=== PATIENT | female | born 1975 | race Caucasian/White ===

== ENCOUNTER 2017-05-25 17:49 | Emergency (ER) | payer OTHER ==
[2017-05-25 18:26] LABS: ABSOLUTE BASOPHILS # (AUTO) 0.1 10^3/uL (0.0-0.2); ABSOLUTE EOSINOPHILS # (AUTO) 0.2 10^3/uL (0.0-0.6); ABSOLUTE LYMPHOCYTES (AUTO) 2.5 10^3/uL (0.5-4.7); ABSOLUTE MONOCYTES (AUTO) 0.5 10^3/uL (0.1-1.4); ABSOLUTE NEUT (AUTO) 4.7 10^3/uL (1.7-8.2); BASOPHILS % (AUTO) 0.8 % (0-2); EOSINOPHILS % (AUTO) 1.9 % (0-6); HEMATOCRIT 36.9 % (36.0-47.0); HEMOGLOBIN 12.8 g/dL (12.0-15.5); HGB HCT DIFFERENCE 1.5; LYMPHOCYTES % (AUTO) 31.7 % (13-45); MEAN CORPUSCULAR HEMOGLOBIN 35.8 pg (27.0-33.4); MEAN CORPUSCULAR HGB CONC 34.8 g/dL (32.0-36.0); MEAN CORPUSCULAR VOLUME 103 fl (80-97); MONOCYTES % (AUTO) 6.3 % (3-13); RED BLOOD COUNT 3.58 10^6/uL (3.72-5.28); RED CELL DISTRIBUTION WIDTH 13.4 % (11.5-14.0); SEGMENTED NEUTROPHILS % (AUTO) 59.3 % (42-78)
[2017-05-25 18:50] LABS: ALANINE AMINOTRANSFERASE 47 U/L (9-52); ALBUMIN 4.7 g/dL (3.5-5.0); ALKALINE PHOSPHATASE 65 U/L (38-126); ANION GAP 13 (5-19); ASPARTATE AMINO TRANSFERASE 45 U/L (14-36); BILIRUBIN,DIRECT 0.3 mg/dL (0.0-0.4); BILIRUBIN,TOTAL 0.6 mg/dL (0.2-1.3); BLOOD UREA NITROGEN 6 mg/dL (7-20); CALCIUM 9.4 mg/dL (8.4-10.2); CARBON DIOXIDE 25 mmol/L (22-30); CHLORIDE 102 mmol/L (98-107); CREATININE RESULT 0.72 mg/dL (0.52-1.25); GLUCOSE 94 mg/dL (75-110); POTASSIUM 3.7 mmol/L (3.6-5.0); SODIUM 140.2 mmol/L (137-145); TOTAL PROTEIN 7.9 g/dL (6.3-8.2)
[2017-05-25 19:03] LABS: APPEARANCE,URINE CLEAR; BILIRUBIN,URINE NEGATIVE (NEGATIVE); GLUCOSE, URINE NEGATIVE (NEGATIVE); KETONES,URINE NEGATIVE (NEGATIVE); LEUKOCYTE ESTERASE,URINE NEGATIVE (NEGATIVE); NITRITE,URINE NEGATIVE (NEGATIVE); PROTEIN,URINE NEGATIVE (NEGATIVE); URINE SPECIFIC GRAVITY 1.001; UROBILINOGEN,URINE NEGATIVE mg/dL (<2.0)
--- NOTE | 2017-05-25 19:07 | ER Document Report ---
ED General - General Chief Complaint: Abdominal Pain Stated Complaint: ABDOMINAL PAIN Time Seen by Provider: 05/25/17 18:08 Notes: Patient states she was recently diagnosed with a urinary tract infection. She was started on Keflex. She states she does drink 6-12 beers per day and is concerned that the Keflex may augment the liver damage the alcohol is doing. She states her abdomen is felt bloated and she continues to have right low back pain so she is concerned. She states the right low back pain is severe and constant. It is been present for approximately 1 week. It is no better despite 3 days of Keflex. Patient has had some nausea but no vomiting or diarrhea. Pain is slightly worse with movement better with rest. It does not radiate. TRAVEL OUTSIDE OF THE [place] IN LAST 30 DAYS: No - Related Data Allergies/Adverse Reactions: acetaminophen [From Fioricet] Allergy (Verified 05/25/17 17:54) butalbital [From Fioricet] Allergy (Verified 05/25/17 17:54) caffeine [From Fioricet] Allergy (Verified 05/25/17 17:54) hydrocodone bitartrate [From Vicodin] Allergy (Verified 05/25/17 17:54) Penicillins Allergy (Verified 05/25/17 17:54) Past Medical History - Social History Smoking Status: Never Smoker Chew tobacco use (# tins/day): No Frequency of alcohol use: Heavy Drug Abuse: None Family History: Reviewed & Not Pertinent, Other - Father had renal carcinoma, mom has history of CHF, no one with premature coronary artery disease - Past Medical History Cardiac Medical History: Reports: Hx Hypertension Renal/ Medical History: Denies: Hx Peritoneal Dialysis GI Medical History: Reports: Hx Gastroesophageal Reflux Disease Psychiatric Medical History: Reports: Hx Anxiety - Sees Dr. Ascencio and takes Lamictal, Xanax, Seroquel, and Vistaril, Hx Depression Past Surgical History: Reports: Hx Abdominal Surgery - Tummy Tuck, Hx Appendectomy, Hx Breast Surgery - Augmentation, Hx Section - x1, tubal , Hx Orthopedic Surgery - Left arm fx, Hx Tubal Ligation - Immunizations Hx Diphtheria, Pertussis, Tetanus Vaccination: Yes Review of Systems - Review of Systems Constitutional: Malaise, Weakness. denies: Fever Gastrointestinal: Abdominal pain, Nausea Genitourinary: denies: Dysuria, Discharge Musculoskeletal: Back pain -: Yes All other systems reviewed and negative Physical Exam - Vital signs Vitals: Temp Pulse Resp BP Pulse Ox 98.5 F 71 14 149/106 H 100 05/25/17 17:52 05/25/17 17:52 05/25/17 17:52 05/25/17 17:52 05/25/17 17:52 Interpretation: Hypertensive - General General appearance: Appears well, Alert - HEENT Head: Normocephalic, Atraumatic Eyes: Normal Pupils: PERRL - Respiratory Respiratory status: No respiratory distress Chest status: Nontender Breath sounds: Normal Chest palpation: Normal - Cardiovascular Rhythm: Regular Heart sounds: Normal auscultation Murmur: No - Abdominal Inspection: Normal Distension: No distension Bowel sounds: Normal Tenderness: Tender - Mild tenderness in the right upper quadrant. No rebound no guarding. Organomegaly: No organomegaly - Back Back: Normal, Nontender - Extremities General upper extremity: Normal inspection, Nontender, Normal color, Normal ROM , Normal temperature General lower extremity: Normal inspection, Nontender, Normal color, Normal ROM , Normal temperature, Normal weight bearing. No: Kathleen's sign - Neurological Neuro grossly intact: Yes Cognition: Normal Orientation: AAOx4 Luke Coma Scale Eye Opening: Spontaneous [place] Coma Scale Verbal: Oriented [place] Coma Scale Motor: Obeys Commands Luke Coma Scale Total: 15 Speech: Normal Motor strength normal: LUE, RUE, LLE, RLE Sensory: Normal - Psychological Associated symptoms: Normal affect, Normal mood - Skin Skin Temperature: Warm Skin Moisture: Dry Skin Color: Normal Course - Vital Signs Vital signs: Temp Pulse Resp BP Pulse Ox 98.5 F 71 14 149/106 H 100 05/25/17 17:52 05/25/17 17:52 05/25/17 17:52 05/25/17 17:52 05/25/17 17:52 - Laboratory Result Diagrams: 05/25/17 18:15 05/25/17 18:15 Laboratory results interpreted by me: 05/25/17 05/25/17 18:15 18:15 RBC 3.58 L MCV 103 H MCH 35.8 H BUN 6 L AST 45 H Discharge - Discharge Clinical Impression: Abdominal pain, Alcohol abuse Condition: Fair Disposition: HOME, SELF-CARE Instructions: Abdominal Pain ([facility]) Additional Instructions: Please call your doctor as soon as possible arrange for reevaluation. Forms: Elevated Blood Pressure
[2017-05-25 19:16] VITALS: BP 134/89
== END 2017-05-25 19:15 | disposition home or self-care (01) ==
LOC: ER 17:49
DX: R10.9 Unspecified abdominal pain (principal); F10.10 Alcohol abuse, uncomplicated; R11.0 Nausea; M54.5 Low back pain; Z79.899 Other long term (current) drug therapy
CPT/HCPCS: 36415; 80053; 81001; 81025; 85025; 99284

== ENCOUNTER 2017-07-17 18:37 | Inpatient (IN) | payer OTHER ==
[2017-07-17] MEDS ORDERED: ONDANSETRON 4 MG TAB.RAPDIS PO ONE (19:33)
[2017-07-17] MEDS ORDERED: NORMAL SALINE 1000 ML 1,000 ML IV ONE (19:33)
--- NOTE | 2017-07-17 19:42 | ER Document Report ---
ED Medical Screen (RME) - General Chief Complaint: ETOH Abuse Stated Complaint: ABDOMINAL PAIN Time Seen by Provider: 07/17/17 19:33 Notes: This 42-year-old alcoholic comes emergency room reporting that she began drinking heavily on Thursday. She has had abdominal pain and vomiting since Thursday which is lasted all week but got worse today. She reports she has not been eating for the past week. She has also had some diarrhea. She takes Lamictal, Seroquel, Vistaril, Prilosec and carries a diagnosis of bipolar disorder. I have greeted and performed a rapid initial assessment of this patient. A comprehensive ED assessment and evaluation of the patient, analysis of test results and completion of the medical decision making process will be conducted by additional ED providers. TRAVEL OUTSIDE OF THE [place] IN LAST 30 DAYS: No - Related Data Allergies/Adverse Reactions: acetaminophen [From Fioricet] Allergy (Verified 07/17/17 18:43) butalbital [From Fioricet] Allergy (Verified 07/17/17 18:43) caffeine [From Fioricet] Allergy (Verified 07/17/17 18:43) hydrocodone bitartrate [From Vicodin] Allergy (Verified 07/17/17 18:43) Penicillins Allergy (Verified 07/17/17 18:43) Past Medical History - Social History Chew tobacco use (# tins/day): No Frequency of alcohol use: Heavy Drug Abuse: None Family history: CAD - Past Medical History Cardiac Medical History: Reports: Hx Hypertension Renal/ Medical History: Denies: Hx Peritoneal Dialysis GI Medical History: Reports: Hx Gastroesophageal Reflux Disease Psychiatric Medical History: Reports: Hx Anxiety - Sees Dr. Ascencio and takes Lamictal, Xanax, Seroquel, and Vistaril, Hx Depression Past Surgical History: Reports: Hx Abdominal Surgery - Tummy Tuck, Hx Appendectomy, Hx Breast Surgery - Augmentation, Hx Section - x1, tubal , Hx Orthopedic Surgery - Left arm fx, Hx Tubal Ligation - Immunizations Hx Diphtheria, Pertussis, Tetanus Vaccination: Yes Physical Exam - Vital signs Vitals: Temp Pulse Resp BP Pulse Ox 98.4 F 103 H 18 116/70 95 07/17/17 18:42 07/17/17 18:42 07/17/17 18:42 07/17/17 18:42 07/17/17 18:42 Course - Vital Signs Vital signs: Temp Pulse Resp BP Pulse Ox 98.4 F 103 H 18 116/70 95 07/17/17 18:42 07/17/17 18:42 07/17/17 18:42 07/17/17 18:42 07/17/17 18:42
[2017-07-17 22:06] LABS: ABSOLUTE MONOCYTES (AUTO) 0.6 10^3/uL (0.1-1.4); ABSOLUTE NEUT (AUTO) 2.5 10^3/uL (1.7-8.2); BASOPHILS % (AUTO) 0.5 % (0-2); EOSINOPHILS % (AUTO) 0.4 % (0-6); HEMOGLOBIN 13.2 g/dL (12.0-15.5); HGB HCT DIFFERENCE 3.6; LYMPHOCYTES % (AUTO) 39.2 % (13-45); MEAN CORPUSCULAR HEMOGLOBIN 36.1 pg (27.0-33.4); MEAN CORPUSCULAR HGB CONC 36.7 g/dL (32.0-36.0); MEAN CORPUSCULAR VOLUME 98 fl (80-97); MONOCYTES % (AUTO) 10.7 % (3-13); RED BLOOD COUNT 3.66 10^6/uL (3.72-5.28); RED CELL DISTRIBUTION WIDTH 12.8 % (11.5-14.0); SEGMENTED NEUTROPHILS % (AUTO) 49.2 % (42-78); WHITE BLOOD COUNT 5.2 10^3/uL (4.0-10.5)
[2017-07-17 22:20] LABS: ALANINE AMINOTRANSFERASE 49 U/L (9-52); ALBUMIN 4.5 g/dL (3.5-5.0); ALKALINE PHOSPHATASE 56 U/L (38-126); ASPARTATE AMINO TRANSFERASE 90 U/L (14-36); BILIRUBIN,DIRECT 0.4 mg/dL (0.0-0.4); BILIRUBIN,TOTAL 0.8 mg/dL (0.2-1.3); BLOOD UREA NITROGEN 5 mg/dL (7-20); CARBON DIOXIDE 15 mmol/L (22-30); CHLORIDE 81 mmol/L (98-107); CREATININE RESULT 0.61 mg/dL (0.52-1.25); GLUCOSE 137 mg/dL (75-110); MAGNESIUM 1.4 mg/dL (1.6-2.3); TOTAL PROTEIN 7.4 g/dL (6.3-8.2)
[2017-07-17 22:24] LABS: AMORPHOUS SEDIMENT,URINE 1+ /HPF; APPEARANCE,URINE TURBID; BILIRUBIN,URINE NEGATIVE (NEGATIVE); GLUCOSE, URINE 50 mg/dL (NEGATIVE); KETONES,URINE NEGATIVE (NEGATIVE); LEUKOCYTE ESTERASE,URINE NEGATIVE (NEGATIVE); NITRITE,URINE NEGATIVE (NEGATIVE); PROTEIN,URINE 30 mg/dL (NEGATIVE); URINE SPECIFIC GRAVITY 1.026; UROBILINOGEN,URINE NEGATIVE mg/dL (<2.0)
[2017-07-17 22:35] LABS: POTASSIUM 2.7 mmol/L (3.6-5.0); SODIUM 120.1 mmol/L (137-145)
[2017-07-17] MEDS ORDERED: METOCLOPRAMIDE HCL ORAL SOLN 10 MG/10 ML UDCUP PO ONE (22:40)
[2017-07-17] MEDS ORDERED: LIDOCAINE 2% VISCOUS SOLN 20 ML UDCUP PO ONE (22:40)
[2017-07-17] MEDS ORDERED: MAG HYDROX/AL HYDROX/SIMETH SUSP 30 ML UDCUP PO ONE (22:40)
[2017-07-17] MEDS ORDERED: ONDANSETRON HCL INJ/PF 4 MG/2 ML SDV IV ONE (22:40)
[2017-07-17 22:53] LABS: ANION GAP 24 (5-19)
[2017-07-17] MEDS: MORPHINE SULFATE 10 MG/ML INJ IV PRN (22:58)
[2017-07-17] MEDS ORDERED: DIAZEPAM 5 MG TABLET PO ONE (23:00)
--- NOTE | 2017-07-17 23:08 | ER Document Report ---
ED General - General Chief Complaint: ETOH Abuse Stated Complaint: ABDOMINAL PAIN Time Seen by Provider: 07/17/17 19:33 Notes: Patient is a 42-year-old female with a past medical history of chronic alcoholism that has been in relapse for the past 8 months who presents with 1 week of a severe binge on alcohol with associated nausea, vomiting and lack of food intake. Patient states that today she began to develop a progressively worsening pain in her epigastrium that was worsened by vomiting and alcohol intake. Describes as a dull, constant, aching pain. Nothing improves the pain. States she has had similar symptoms in the past due to excessive alcohol intake. She has had associated nonbilious vomiting but has had flecks of blood contained in the vomitus. Denies any melena, hematochezia or karla hematemesis. She has not seen her primary doctor regarding today's concerns. Denies any seizures. No history of completed alcohol withdrawal. TRAVEL OUTSIDE OF THE [place] IN LAST 30 DAYS: No - Related Data Allergies/Adverse Reactions: butalbital [From Fioricet] Allergy (Verified 07/17/17 18:43) caffeine [From Fioricet] Allergy (Verified 07/17/17 18:43) hydrocodone bitartrate [From Vicodin] Allergy (Verified 07/17/17 18:43) Penicillins Allergy (Verified 07/17/17 18:43) Past Medical History - General Information source: Patient - Social History Smoking Status: Former Smoker Chew tobacco use (# tins/day): No Frequency of alcohol use: Heavy Drug Abuse: None Lives with: Alone Family History: Reviewed & Not Pertinent, Other - Father had renal carcinoma, mom has history of CHF, no one with premature coronary artery disease - Past Medical History Cardiac Medical History: Reports: Hx Hypertension Renal/ Medical History: Denies: Hx Peritoneal Dialysis GI Medical History: Reports: Hx Gastroesophageal Reflux Disease Psychiatric Medical History: Reports: Hx Anxiety - Sees Dr. Ascencio and takes Lamictal, Xanax, Seroquel, and Vistaril, Hx Depression Past Surgical History: Reports: Hx Abdominal Surgery - Tummy Tuck, Hx Appendectomy, Hx Breast Surgery - Augmentation, Hx Section - x1, tubal , Hx Orthopedic Surgery - Left arm fx, Hx Tubal Ligation - Immunizations Hx Diphtheria, Pertussis, Tetanus Vaccination: Yes Review of Systems - Review of Systems Notes: Constitutional: Negative for fever. HENT: Negative for sore throat. Eyes: Negative for visual changes. Cardiovascular: Negative for chest pain. Respiratory: Negative for shortness of breath. Gastrointestinal: Positive for abdominal pain and vomiting Genitourinary: Negative for dysuria. Musculoskeletal: Negative for back pain. Skin: Negative for rash. Neurological: Negative for headaches, weakness or numbness. 10 point ROS negative except as marked above and in HPI. Physical Exam - Vital signs Vitals: Temp Pulse Resp BP Pulse Ox 98.4 F 103 H 18 116/70 95 07/17/17 18:42 07/17/17 18:42 07/17/17 18:42 07/17/17 18:42 07/17/17 18:42 Interpretation: Tachycardic Notes: PHYSICAL EXAMINATION: GENERAL: Appears uncomfortable but no acute distress HEAD: Atraumatic, normocephalic. EYES: Pupils equal round and reactive to light, extraocular movements intact, sclera anicteric, conjunctiva are normal. ENT: nares patent, oropharynx clear without exudates. Moderately dry mucous membranes. NECK: Normal range of motion, supple without lymphadenopathy LUNGS: Breath sounds clear to auscultation bilaterally and equal. No wheezes rales or rhonchi. HEART: Regular tachycardia without murmurs ABDOMEN: Soft, focal tenderness on palpation to the epigastrium otherwise no localized tenderness. No rebound or guarding. EXTREMITIES: Normal range of motion, no pitting or edema. No cyanosis. NEUROLOGICAL: No focal neurological deficits. Moves all extremities spontaneously and on command. PSYCH: Mildly anxious somewhat tearful SKIN: Warm, Dry, normal turgor, no rashes or lesions noted. Course - Re-evaluation Re-evalutation: 07/17/17 23:06 Patient presents with persistent nausea, vomiting and epigastric abdominal pain in the setting of heavy alcohol abuse for the past 1 week. Patient has had difficulty tolerating any food intake but admits to ongoing heavy beer intake. On examination she appears somewhat dehydrated, mildly disheveled but in no acute distress. She does have mild epigastric abdominal tenderness but exam is otherwise unremarkable. Laboratories unfortunately do show significant electrolyte derangements including hyponatremia with a level of 120 as well as hypokalemia with a level of 2.7. Her urine specific gravity is not significantly diluted at 1.024 suggesting that there may also be a component of malnourishment as well as diaphoresis and vomiting contributing to her hyponatremia. She has no prior history of complicated withdrawals and does not appear to be having any symptoms of active alcohol withdrawal at this time. I have begun potassium and magnesium repletion. Very gradual sodium repletion with normal saline at 125 cc/h. She has received a small amount of morphine for pain control. I have given a low dose of oral Valium at 10 mg to prevent any significant withdrawal symptoms. I have also begun repletion of thiamine and folate. I have discussed this case with Dr. Hand hospitalist artist color separation who is agreeable to admission. Patient has been placed on a monitoring tech and on seizure precautions given the degree of her hyponatremia. - Vital Signs Vital signs: Temp Pulse Resp BP Pulse Ox 98.4 F 93 18 133/79 H 96 07/17/17 18:42 07/17/17 23:17 07/17/17 23:17 07/17/17 23:17 07/17/17 23:17 - Laboratory Result Diagrams: 07/17/17 20:50 07/17/17 20:50 Laboratory results interpreted by me: 07/17/17 07/17/17 07/17/17 20:50 20:50 20:50 RBC 3.66 L MCV 98 H MCH 36.1 H MCHC 36.7 H Sodium 120.1 L* Potassium 2.7 L* Chloride 81 L Carbon Dioxide 15 L Anion Gap 24 H BUN 5 L Glucose 137 H Magnesium 1.4 L AST 90 H Lipase 445.0 H Urine Protein 30 H Urine Glucose (UA) 50 H Urine Blood MODERATE H Discharge - Discharge Clinical Impression: Hyponatremia, Hypokalemia, Alcohol abuse Nausea and vomiting Qualifiers: Vomiting type: unspecified Vomiting Intractability: non-intractable Qualified Code(s): R11.2 - Nausea with vomiting, unspecified Condition: Fair Disposition: ADMITTED INPATIENT Admitting Provider: Joao Hand Unit Admitted: [facility]
[2017-07-17] MEDS ORDERED: THIAMINE HCL 100 MG, FOLIC ACID 1 MG in NORMAL SALINE 250 ML IV SCH (23:15)
[2017-07-17 23:22] LABS: ADD ON TESTING BLD IN LAB ACKNOWLEDGE
[2017-07-17] MEDS: NORMAL SALINE 1000 ML 1,000 ML IV PRN (23:35)
[2017-07-17] MEDS ORDERED: THIAMINE HCL INJ 200 MG/2 ML VIAL IV PRN (23:35)
[2017-07-17] MEDS ORDERED: FOLIC ACID INJ 5 MG/1 ML 10 ML VIAL IV PRN (23:35)
[2017-07-17] MEDS: POTASSI CL 20 MEQ/50 ML RIDER 20 MEQ/50 ML RTUPB IV SCH (23:36)
[2017-07-17] MEDS: MAGNESIUM SULFATE/D5W 1 GM/100 ML RTUPB IV SCH (23:37)
[2017-07-17 23:41] LABS: ALCOHOL 181 mg/dL (NONE DETECTED)
[2017-07-17 23:42] LABS: URINE BARBITURATES SCREEN NEGATIVE; URINE METHADONE SCREEN NEGATIVE; URINE OPIATES LOW NEGATIVE; URINE PHENCYCLIDINE SCREEN NEGATIVE
[2017-07-17] MEDS ORDERED: POTASSI CL 20 MEQ/50 ML RIDER 20 MEQ/50 ML RTUPB IV SCH (23:45)
[2017-07-17] MEDS ORDERED: THIAMINE HCL 100 MG, FOLIC ACID 1 MG in NORMAL SALINE 250 ML IV ONE (23:59)
[2017-07-18] MEDS: MORPHINE SULFATE 10 MG/ML INJ IV PRN (01:20)
[2017-07-18 01:41] LABS: BLOOD UREA NITROGEN 4 mg/dL (7-20); CALCIUM 8.5 mg/dL (8.4-10.2); CHLORIDE 86 mmol/L (98-107); CREATININE RESULT 0.55 mg/dL (0.52-1.25); GLUCOSE 112 mg/dL (75-110); POTASSIUM 3.2 mmol/L (3.6-5.0)
[2017-07-18 01:52] LABS: CARBON DIOXIDE 17 mmol/L (22-30); SODIUM 123.2 mmol/L (137-145)
[2017-07-18 01:58] LABS: ANION GAP 20 (5-19)
[2017-07-18] MEDS ORDERED: LORAZEPAM INJ 2 MG/1 ML VIAL IV PRN (02:03)
[2017-07-18] MEDS: LORAZEPAM INJ 2 MG/1 ML VIAL IV PRN ×5 (02:44→21:27)
[2017-07-18] MEDS ORDERED: FOLIC ACID INJ 5 MG/1 ML 10 ML VIAL ONE (02:57)
[2017-07-18] MEDS: MAGNESIUM SULFATE/D5W 1 GM/100 ML RTUPB IV SCH (03:02)
[2017-07-18] MEDS ORDERED: PROMETHAZINE HCL INJ 25 MG/1 ML VIAL IV PRN (03:06)
[2017-07-18] MEDS ORDERED: FAMOTIDINE INJ/PF 20 MG/2 ML SDV IV ONE (03:15)
--- NOTE | 2017-07-18 03:33 | PDOC H&P ---
History of Present Illness Admission Date/PCP: 07/17/17 23:27 Asad Boles care provider on local [facility] base [facility] Dr. Yu Patient complains of: Abdominal pain, nausea and vomiting History of Present Illness: CHETNA TERRELL is a 42 year old female with underlying bipolar disorder , hypertension, anxiety and depression, without suicidal or homicidal ideation, along with ongoing alcohol abuse who presents to the emergency room for evaluation of above complaints. Patient has been discussed with emergency room physician who evaluated the patient. Patient has a history of alcohol abuse, but actually had been sober for quite a long time prior to starting back drinking 8 months ago. However, over the last week her alcohol intake is increased significantly. Over that time span, she has been drinking more than a case of beer per day. She has had nausea and a number of episodes of vomiting. Possible scattered amount of coffee-ground material. No bright red blood. No melena. Some shaking, although no karla chills or fever. Chronic intermittent diarrhea; patient is irritable bowel syndrome. Patient does carry a history of peptic ulcer disease, and has had previous upper endoscopy. Denies any knowledge of esophageal varices. He has had no karla withdrawal seizure or delirium tremens. Dictation via voice recognition software. Laboratory results are listed in [facility] and are reviewed. X-ray summary results are listed below, with full report(s) reviewed. . EKG reviewed and compared to prior tracing from May 18 of last year. Social history/personal habits: Allergies/adverse reactions are listed in [employer] and are reviewed. No problems with Keflex. Home medications initially autopopulated into [employer] may not accurately reflect patient's true medications, dosages, and/or frequencies. dispensary technician to reconcile medications. Unfortunately, patient not certain of all medications/dosages/frequencies. REVIEW OF SYSTEMS: Constitutional: See history and present illness. Eyes: Wears glasses ENT: No swallowing problems or complaints. Denies hearing loss. Pulmonary: No current complaints. Cardiovascular: No current complaints, including chest pain. Gastrointestinal: See history and present illness. Skin: Occasional problem with psoriasis. Hematologic: Denies easy bruising. Neurologic: No current complaints, including numbness or tingling. Musculoskeletal: No current or chronic joint complaints, such as arthritis. Psychiatric: Anxiety and depression; denies suicidal or homicidal ideation. Endocrine: No current complaints, including polyuria. Genitourinary: No current complaints, including dysuria. 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 5 feet 6 inches tall. 86.2 kg. BMI 30.7 kg/m. Temperature 98.8. Pulse 79 and regular. Blood pressure 125/63. Respirations are 18 and unlabored. 96% saturation on room air. Obese somewhat disheveled female who appears slightly older than her stated age. Appears not to feel very well. Somewhat fatigued appearance. Brief moments of very slight tremulousness. However, awake alert and cooperative. Skin is warm and dry. No grossly obvious evidence of rash in areas of skin examined. No subcutaneous nodules palpated. ENT: Hearing grossly normal to normal conversation. Tongue midline on protrusion pink and slightly tacky. Eyes: No scleral icterus. Pupils equal and reactive to light at 4 mm. [place] conjunctivae. Neck is supple and nontender to gentle active range of motion and palpation. Midline trachea. No palpable thyroid nodule mass enlargement or tenderness. Lymphatic: No palpable cervical or clavicular nodes. Neck and lymphatic exams limited by patient body habitus. Psychiatric: Reasonable insight into acute and chronic medical issues. Oriented to time location and why here. Lungs: Auscultation reveals clear and equal breath sounds bilaterally. No use of accessory respiratory muscles. Cardiovascular: Heart regular rate and rhythm, without gallop murmur or rub. No carotid or abdominal aortic bruits. No ankle or pedal edema. Palpable dorsalis pedis pulses. Abdomen:soft somewhat obese nontender with positive bowel sounds. Unable to adequately evaluate abdomen for masses or organomegaly due to body habitus. Extremities: Feet are warm and dry. No calf tenderness to compression. No grossly obvious visual evidence of calf swelling. Gentle manipulation of lower extremities fails to reveal any obvious evidence of injury or instability to knees hips or ankles. Neurologic: Moves all 4 extremities grossly normally. Patellar reflexes absent. Absent Babinski. Light touch is intact at feet. Dorsiflexion and plantarflexion of feet 5 / 5 and symmetric. Past Medical History Cardiac Medical History: Reports: Hypertension Denies: Atrial Fibrillation, Congestive Heart Failure, Coronary Artery Disease, DVT, Myocardial Infarction, Hyperlipidema, Pulmonary Embolism Pulmonary Medical History: Denies: Asthma, Chronic Obstructive Pulmonary Disease (COPD), Sleep Apnea EENT Medical History: Reports: Eyes - Wears glasses Denies: Ears, Throat Neurological Medical History: Denies: Hemorrhagic CVA, Ischemic CVA, Seizures Endocrine Medical History: Denies: Diabetes Mellitus Type 1, Diabetes Mellitus Type 2, Hyperthyroidism, Hypothyroidism Renal/ Medical History: Reports: None GI Medical History: Reports: Gastroesophageal Reflux Disease - History of peptic ulcer disease, Peptic Ulcer Disease, Other - Irritable bowel syndrome, with chronic intermittent diarrhea Denies: Cirrhosis, Hepatitis Musculoskeltal Medical History: Denies: Arthritis Skin Medical History: Reports: Psoriasis Psychiatric Medical History: Reports: Alcohol Dependency, Depression, General Anxiety Disorder Denies: Substance Abuse, Tobacco Dependency Infectious Medical History: Denies: Hepatitis B, Hepatitis C Past Surgical History Past Surgical History: Reports: Appendectomy, Section - x1, tubal, Orthopedic Surgery - Left arm fx, Tubal Ligation Social History Information Source: Patient, Emergency Med Personnel, [facility] Records Lives with: Spouse/Significant other Smoking Status: Former Smoker Last Time Smoked: 07/04/2017 Frequency of Alcohol Use: Heavy Hx Recreational Drug Use: No Drugs: None Hx Prescription Drug Abuse: No - Advance Directive Resuscitation Status: Full Code Surrogate healthcare decision maker:: Family History Family History: Reviewed & Not Pertinent, Other - Father had renal carcinoma, mom has history of CHF, no one with premature coronary artery disease Parental Family History Reviewed: Yes - Mother alive with hypertension; father cancer survivor Children Family History Reviewed: Yes - Healthy Sibling(s) Family History Reviewed.: Yes - hypertension Medication/Allergy Allergies/Adverse Reactions: butalbital [From Fioricet] Allergy (Verified 07/17/17 18:43) Penicillins Allergy (Verified 07/17/17 18:43) Physical Exam Vital Signs: Temp Pulse Resp BP Pulse Ox 98.8 F 79 18 125/63 96 07/18/17 00:55 07/18/17 00:55 07/18/17 00:55 07/18/17 00:55 07/18/17 00:55 Results Laboratory Results: 07/18/17 01:10 07/18/17 01:10 Sodium 123.2 L Potassium 3.2 L Chloride 86 L Carbon Dioxide 17 L Anion Gap 20 H BUN 4 L Creatinine 0.55 Est GFR ( Amer) > 60 Est GFR (Non-Af Amer) > 60 Glucose 112 H Calcium 8.5 Assessment & Plan - Diagnosis (1) Alcohol intoxication Qualifiers: Complication of substance-induced condition: with unspecified complication Qualified Code(s): F10.929 - Alcohol use, unspecified with intoxication, unspecified Is this a current diagnosis for this admission?: Yes Plan: Alcohol withdrawal protocol, using scheduled and as needed Ativan. IV Pepcid. Daily banana bag; has received intravenous thiamine already. I have strongly encouraged patient not to get out of bed without notifying staff , to avoid a fall with injury. Knee high SCDs for DVT prophylaxis, along with subcutaneous Lovenox. Impression and plans were discussed with patient, who concurs. Time spent in evaluation and management of patient: 70 minutes. (2) Hypokalemia Is this a current diagnosis for this admission?: Yes Plan: Potassium replacement with follow-up chemistry (3) Hypomagnesemia Is this a current diagnosis for this admission?: Yes Plan: Magnesium replacement with follow-up chemistry (4) Hyponatremia Is this a current diagnosis for this admission?: Yes Plan: Likely secondary to her heavy beer intake. Seizure precautions. Gradual correction, with every 4 hour Chem-7. Normal saline. (5) Metabolic acidosis Is this a current diagnosis for this admission?: Yes Plan: Should clear with time and treatment. (6) Nausea and vomiting Qualifiers: Vomiting type: unspecified Vomiting Intractability: non-intractable Qualified Code(s): R11.2 - Nausea with vomiting, unspecified Is this a current diagnosis for this admission?: Yes Plan: As needed Phenergan. (7) Alcohol abuse Is this a current diagnosis for this admission?: Yes (8) Anxiety Is this a current diagnosis for this admission?: Yes Plan: Resume home medications as appropriate once these have been determined and reviewed. (9) Bipolar disorder Qualifiers: Active/Remission status: remission status unspecified Qualified Code(s): F31.9 - Bipolar disorder, unspecified Is this a current diagnosis for this admission?: Yes Plan: Resume home medications as appropriate once these have been determined and reviewed. (10) Depression Qualifiers: Depression Type: unspecified Qualified Code(s): F32.9 - Major depressive disorder, single episode, unspecified Is this a current diagnosis for this admission?: Yes Plan: Resume home medications as appropriate once these have been determined and reviewed. - Time Time Spent: 50 to 70 Minutes Within: Other - Inpatient Certification Based on my medical assessment, after consideration of the patient's comorbidities, presenting symptoms, or acuity I expect that the services needed warrant INPATIENT care.: Yes I certify that my determination is in accordance with my understanding of Medicare's requirements for reasonable and necessary INPATIENT services [42 CFR 412.3e].: Yes Medical Necessity: Significant Comorbidiites Make Outpatient Treatment Too Risky , Need Close Monitoring Due to Risk of Patient Decompensation, Need For IV Fluids, Need For Continuous Telemetry Monitoring, Risk of Complication if Not Cared For in Hospital Post Hospital Care: D/C or Transfer Summary
[2017-07-18] MEDS: NORMAL SALINE 1000 ML 1,000 ML IV PRN (04:16)
[2017-07-18] MEDS: POTASSI CL 20 MEQ/50 ML RIDER 20 MEQ/50 ML RTUPB IV SCH (04:51)
[2017-07-18] MEDS: ACETAMINOPHEN 325 MG TABLET PO PRN (05:01)
[2017-07-18 05:45] LABS: ALANINE AMINOTRANSFERASE 51 U/L (9-52); ALBUMIN 3.9 g/dL (3.5-5.0); ALKALINE PHOSPHATASE 54 U/L (38-126); ANION GAP 16 (5-19); ASPARTATE AMINO TRANSFERASE 114 U/L (14-36); BILIRUBIN,DIRECT 0.4 mg/dL (0.0-0.4); BILIRUBIN,TOTAL 0.8 mg/dL (0.2-1.3); BLOOD UREA NITROGEN 3 mg/dL (7-20); CALCIUM 8.1 mg/dL (8.4-10.2); CARBON DIOXIDE 19 mmol/L (22-30); CHLORIDE 87 mmol/L (98-107); CREATININE RESULT 0.57 mg/dL (0.52-1.25); GLUCOSE 100 mg/dL (75-110); POTASSIUM 3.5 mmol/L (3.6-5.0); SODIUM 121.9 mmol/L (137-145); TOTAL PROTEIN 6.5 g/dL (6.3-8.2)
--- NOTE | 2017-07-18 06:10 | EKG REPORT ---
SEVERITY:- ABNORMAL ECG - SINUS RHYTHM NONSPECIFIC INTRAVENTRICULAR CONDUCTION DELAY PROBABLE LEFT VENTRICULAR HYPERTROPHY NONSPECIFIC ST-T CHANGES ANTERIOR WALL : Confirmed by: Panda Gooden MD 18-Jul-2017 06:09:27
[2017-07-18] MEDS ORDERED: POTASSIUM CHLORIDE 20 MEQ/50 ML RTU IV ONE (10:00)
[2017-07-18 10:01] LABS: ANION GAP 12 (5-19); BLOOD UREA NITROGEN 3 mg/dL (7-20); CALCIUM 8.2 mg/dL (8.4-10.2); CARBON DIOXIDE 22 mmol/L (22-30); CHLORIDE 92 mmol/L (98-107); CREATININE RESULT 0.59 mg/dL (0.52-1.25); GLUCOSE 88 mg/dL (75-110); POTASSIUM 3.7 mmol/L (3.6-5.0); SODIUM 126.4 mmol/L (137-145)
[2017-07-18] MEDS: FAMOTIDINE INJ/PF 20 MG/2 ML SDV IV SCH ×2 (10:09→21:27)
[2017-07-18] MEDS: ENOXAPARIN SODIUM INJ 40 MG/0.4 ML DISP.SYRIN SUBCUT SCH (10:09)
[2017-07-18] MEDS ORDERED: LAMOTRIGINE 100 MG TABLET PO ONE (12:30)
--- NOTE | 2017-07-18 13:06 | PDOC PROGRESS REPORT ---
Subjective Progress Note for:: 07/18/17 Subjective:: Patient was seen this morning resting in bed comfortably. She reports that her nausea and vomiting have resolved and that she is hungry. She asks that her her diet be advanced to allow her to eat this morning. She does complain of epigastric pain radiating to her back has been present for 2-3 weeks. She reports that the pain worsens with certain movements such as sneezing or coughing. The pain does not worsen with activity and she has no associated headache, dizziness, typical cardiac chest pain, or dyspnea. She states that the pain does not have any alleviating factors. She reports that it is similar in quality to pain that she has had in the past when she was diagnosed with PUD for which she takes Prilosec at home. She denies a history of GI bleed. Does confirm regular NSAID use, taking on average 600 mg of ibuprofen daily. Additionally she endorses drinking 1/5 of vodka daily. This been her average alcohol intake for the last 7-8 months. She states that she spoke with her this morning and is interested in intensive outpatient therapy upon discharge for her alcohol abuse. She has no other questions or concerns today and states that overall she is feeling much better. Physical Exam Vital Signs: Temp Pulse Resp BP Pulse Ox 98.3 F 82 19 134/79 H 98 07/18/17 07:57 07/18/17 07:57 07/18/17 03:51 07/18/17 07:57 07/18/17 07:57 Intake & Output 07/17/17 07/18/17 07/19/17 06:59 06:59 06:59 Intake Total 820 Balance 820 General appearance: PRESENT: no acute distress, disheveled, well-developed, well -nourished Head exam: PRESENT: atraumatic, normocephalic Eye exam: PRESENT: conjunctiva pink, EOMI, PERRLA. ABSENT: scleral icterus Ear exam: PRESENT: normal external ear exam Mouth exam: PRESENT: moist, tongue midline Neck exam: ABSENT: carotid bruit, JVD, lymphadenopathy, thyromegaly Respiratory exam: PRESENT: clear to auscultation mira. ABSENT: rales, rhonchi, wheezes Cardiovascular exam: PRESENT: RRR. ABSENT: diastolic murmur, rubs, systolic murmur Pulses: PRESENT: normal dorsalis pedis pul Vascular exam: PRESENT: normal capillary refill GI/Abdominal exam: PRESENT: distended, normal bowel sounds, soft, tenderness - Generalized mild tenderness to palpation; LUQ/Epigastric especially. ABSENT: ascites, guarding, mass, organolmegaly, rebound Rectal exam: PRESENT: deferred Extremities exam: PRESENT: full ROM. ABSENT: calf tenderness, clubbing, pedal edema Neurological exam: PRESENT: alert, awake, oriented to person, oriented to place , oriented to time, oriented to situation, CN II-XII grossly intact. ABSENT: motor sensory deficit Psychiatric exam: PRESENT: appropriate affect, normal mood. ABSENT: homicidal ideation, suicidal ideation Skin exam: PRESENT: dry, intact, warm. ABSENT: cyanosis, rash Results Laboratory Results: 07/18/17 08:51 07/18/17 07/18/17 05:00 08:51 Sodium 121.9 L 126.4 L Potassium 3.5 L 3.7 Chloride 87 L 92 L Carbon Dioxide 19 L 22 Anion Gap 16 12 BUN 3 L 3 L Creatinine 0.57 0.59 Est GFR ( Amer) > 60 > 60 Est GFR (Non-Af Amer) > 60 > 60 Glucose 100 88 Calcium 8.1 L 8.2 L Magnesium 2.0 Total Bilirubin 0.8 AST 114 H ALT 51 Alkaline Phosphatase 54 Total Protein 6.5 Albumin 3.9 Assessment & Plan - Diagnosis (1) Epigastric abdominal pain Plan: Likely gastritis; patient with heavy alcohol and regular NSAID use. 1-PPI 2-clear liquid diet (2) Hyponatremia Is this a current diagnosis for this admission?: Yes Plan: Improving (2.7-->3.2-->3.5-->3. Think7). On seizure precautions. 1- Gradual correction with IVF 2- BMP q4 hr (3) Nausea and vomiting Qualifiers: Vomiting type: unspecified Vomiting Intractability: non-intractable Qualified Code(s): R11.2 - Nausea with vomiting, unspecified Is this a current diagnosis for this admission?: Yes Plan: Improved. Will advance diet slowly. 1- Phenergan prn 2- Clear liquid diet (4) Alcohol abuse Is this a current diagnosis for this admission?: Yes Plan: Patient reports that she has been sober for an extended period of time until about 8 months ago when she began drinking heavily. She is currently drinking 1 /5 L of vodka daily. She does express a desire to stop drinking and is interested in establishing with intensive outpatient therapy upon discharge. Will ask discharge panning to assist. (5) Anxiety Is this a current diagnosis for this admission?: Yes (6) Bipolar disorder Qualifiers: Active/Remission status: remission status unspecified Qualified Code(s): F31.9 - Bipolar disorder, unspecified Is this a current diagnosis for this admission?: Yes Plan: Will resume home medication: Lamictal (7) Depression Qualifiers: Depression Type: unspecified Qualified Code(s): F32.9 - Major depressive disorder, single episode, unspecified Is this a current diagnosis for this admission?: Yes Plan: As above (8) Hypokalemia Is this a current diagnosis for this admission?: Yes Plan: Replete. Will monitor. (9) Hypomagnesemia Is this a current diagnosis for this admission?: Yes Plan: Replete. Will monitor. (10) Metabolic acidosis Is this a current diagnosis for this admission?: Yes Plan: Corrected; will monitor. (11) Alcohol intoxication Qualifiers: Complication of substance-induced condition: with unspecified complication Qualified Code(s): F10.929 - Alcohol use, unspecified with intoxication, unspecified Is this a current diagnosis for this admission?: Yes Plan: 1- Alcohol withdrawal protocol, using scheduled and as needed Ativan. 2- IV Pepcid 3- Daily banana bag; has received thiamine 4- Seizure precautions - Time Time Spent with patient: 25-34 minutes Medications reviewed and adjusted accordingly: Yes
[2017-07-18 14:03] LABS: ANION GAP 12 (5-19); BLOOD UREA NITROGEN 3 mg/dL (7-20); CALCIUM 8.5 mg/dL (8.4-10.2); CARBON DIOXIDE 23 mmol/L (22-30); CHLORIDE 99 mmol/L (98-107); CREATININE RESULT 0.64 mg/dL (0.52-1.25); GLUCOSE 92 mg/dL (75-110); POTASSIUM 3.9 mmol/L (3.6-5.0); SODIUM 133.7 mmol/L (137-145)
[2017-07-18] MEDS ORDERED: LORAZEPAM INJ 2 MG/1 ML VIAL IV SCH (18:00)
[2017-07-18] MEDS: NORMAL SALINE 1000 ML 1,000 ML with THIAMINE HCL 100 MG, MVI, ADULT NO.1 WITH VIT K 10 ... IV SCH ×4 (18:31)
[2017-07-19] MEDS: LORAZEPAM INJ 2 MG/1 ML VIAL IV PRN (04:14)
[2017-07-19 06:08] LABS: HEMATOCRIT 34.3 % (36.0-47.0); HEMOGLOBIN 12.5 g/dL (12.0-15.5); HGB HCT DIFFERENCE 3.2; MEAN CORPUSCULAR HEMOGLOBIN 36.4 pg (27.0-33.4); MEAN CORPUSCULAR HGB CONC 36.4 g/dL (32.0-36.0); MEAN CORPUSCULAR VOLUME 100 fl (80-97); RED BLOOD COUNT 3.43 10^6/uL (3.72-5.28); RED CELL DISTRIBUTION WIDTH 13.1 % (11.5-14.0)
[2017-07-19 06:24] LABS: ANION GAP 9 (5-19); BLOOD UREA NITROGEN 6 mg/dL (7-20); CALCIUM 8.5 mg/dL (8.4-10.2); CARBON DIOXIDE 26 mmol/L (22-30); CHLORIDE 101 mmol/L (98-107); CREATININE RESULT 0.67 mg/dL (0.52-1.25); GLUCOSE 88 mg/dL (75-110); LIPASE 288.2 U/L (23-300); POTASSIUM 4.4 mmol/L (3.6-5.0); SODIUM 136.2 mmol/L (137-145)
[2017-07-19] MEDS: ACETAMINOPHEN 325 MG TABLET PO PRN (08:52)
[2017-07-19] MEDS: ENOXAPARIN SODIUM INJ 40 MG/0.4 ML DISP.SYRIN SUBCUT SCH (09:34)
[2017-07-19] MEDS: HYDROCHLOROTHIAZIDE 12.5 MG CAPSULE PO SCH (09:35)
[2017-07-19] MEDS: LOSARTAN POTASSIUM 50 MG TABLET PO SCH (09:35)
[2017-07-19] MEDS: LAMOTRIGINE 100 MG TABLET PO SCH (09:35)
[2017-07-19] MEDS: FAMOTIDINE INJ/PF 20 MG/2 ML SDV IV SCH ×2 (09:35→22:07)
[2017-07-19] MEDS ORDERED: (PENDING PHARMACY ID) (Telmisartan/Hydrochlorothiazid [Micardis Hct 40-12.5 Mg Tablet] 1 T PO SCH (10:00)
[2017-07-19] MEDS ORDERED: (PENDING PHARMACY ID) (Lamotrigine [Lamictal] 200 MG) PO SCH (10:00)
[2017-07-19] MEDS ORDERED: LOPERAMIDE HCL 2 MG CAPSULE PO PRN (10:25)
--- NOTE | 2017-07-19 11:03 | PDOC PROGRESS REPORT ---
Subjective Progress Note for:: 07/19/17 Subjective:: Patient was seen this morning resting in bed comfortably. She reports that her nausea and vomiting have resolved, however, she is now having loose stools. She states that she is hungry and asks to have her diet advanced this morning. She reports that her epigastric pain has also resolved. She does c/o congestion and a frontal headache this morning. She denies rhinorrhea, sore throat, post nasal drip, and cough. She denies fever and chills. She has no other questions or concerns today. Review of systems is otherwise negative. Physical Exam Vital Signs: Temp Pulse Resp BP Pulse Ox 99.4 F 86 18 139/72 H 99 07/19/17 07:45 07/19/17 07:45 07/19/17 07:45 07/19/17 07:45 07/19/17 07:45 Intake & Output 07/18/17 07/19/17 07/20/17 06:59 06:59 06:59 Intake Total 820 2890 Balance 820 2890 General appearance: PRESENT: no acute distress, obese, well-developed, well- nourished Head exam: PRESENT: atraumatic, normocephalic Eye exam: PRESENT: conjunctiva pink, EOMI, PERRLA. ABSENT: scleral icterus Ear exam: PRESENT: normal external ear exam Mouth exam: PRESENT: moist, tongue midline Throat exam: ABSENT: post pharyngeal erythema, tonsillar exudate, tonsillogmegaly Neck exam: PRESENT: full ROM. ABSENT: carotid bruit, JVD, lymphadenopathy, thyromegaly Respiratory exam: PRESENT: clear to auscultation mira. ABSENT: rales, rhonchi, wheezes Cardiovascular exam: PRESENT: RRR. ABSENT: diastolic murmur, rubs, systolic murmur Pulses: PRESENT: normal dorsalis pedis pul Vascular exam: PRESENT: normal capillary refill GI/Abdominal exam: PRESENT: normal bowel sounds, soft. ABSENT: distended, guarding, mass, organolmegaly, rebound, tenderness Rectal exam: PRESENT: deferred Extremities exam: PRESENT: full ROM. ABSENT: calf tenderness, clubbing, pedal edema Neurological exam: PRESENT: alert, awake, oriented to person, oriented to place , oriented to time, oriented to situation, CN II-XII grossly intact. ABSENT: motor sensory deficit Psychiatric exam: PRESENT: appropriate affect, normal mood. ABSENT: homicidal ideation, suicidal ideation Skin exam: PRESENT: dry, intact, warm. ABSENT: cyanosis, rash Results Laboratory Results: 07/19/17 05:30 07/19/17 05:30 07/18/17 07/19/17 07/19/17 13:22 05:30 05:30 WBC 5.0 RBC 3.43 L Hgb 12.5 Hct 34.3 L MCV 100 H MCH 36.4 H MCHC 36.4 H RDW 13.1 Plt Count 153 Sodium 133.7 L 136.2 L Potassium 3.9 4.4 Chloride 99 101 Carbon Dioxide 23 26 Anion Gap 12 9 BUN 3 L 6 L Creatinine 0.64 0.67 Est GFR ( Amer) > 60 > 60 Est GFR (Non-Af Amer) > 60 > 60 Glucose 92 88 Calcium 8.5 8.5 Lipase 288.2 Assessment & Plan - Diagnosis (1) Epigastric abdominal pain Plan: Likely gastritis; patient with heavy alcohol and regular NSAID use. Improved today. 1-PPI 2-Full liquid diet and advance as tolerated (2) Nausea and vomiting Qualifiers: Vomiting type: unspecified Vomiting Intractability: non-intractable Qualified Code(s): R11.2 - Nausea with vomiting, unspecified Is this a current diagnosis for this admission?: Yes Plan: Improved. Will advance diet slowly. 1- Phenergan prn (3) Alcohol abuse Is this a current diagnosis for this admission?: Yes Plan: Patient reports that she has been sober for an extended period of time until about 8 months ago when she began drinking heavily. She is currently drinking 1 /5 L of vodka daily. She does express a desire to stop drinking and is interested in establishing with intensive outpatient therapy upon discharge. Will ask discharge panning to assist. (4) Alcohol intoxication Qualifiers: Complication of substance-induced condition: with unspecified complication Qualified Code(s): F10.929 - Alcohol use, unspecified with intoxication, unspecified Is this a current diagnosis for this admission?: Yes Plan: 1- Alcohol withdrawal protocol, using as needed Ativan. 2- IV Pepcid 3- Daily banana bag; has received thiamine 4- Seizure precautions (5) Diarrhea Qualifiers: Diarrhea type: unspecified type Qualified Code(s): R19.7 - Diarrhea, unspecified Is this a current diagnosis for this admission?: Yes Plan: Likely r/t gastritis and/or etoh abuse. Afebrile and w/o abdominal pain. 1- immodium prn 2- advance diet as tolerated (6) Anxiety Is this a current diagnosis for this admission?: Yes Plan: IV atrivan x1 overnight; will transition to PO today. (7) Bipolar disorder Qualifiers: Active/Remission status: remission status unspecified Qualified Code(s): F31.9 - Bipolar disorder, unspecified Is this a current diagnosis for this admission?: Yes Plan: Will resume home medication: Lamictal (8) Depression Qualifiers: Depression Type: unspecified Qualified Code(s): F32.9 - Major depressive disorder, single episode, unspecified Is this a current diagnosis for this admission?: Yes Plan: As above (9) Hyponatremia Is this a current diagnosis for this admission?: Yes Plan: Improving. On seizure precautions. Will monitor (10) Hypokalemia Is this a current diagnosis for this admission?: Yes Plan: Replete. Will monitor. (11) Hypomagnesemia Is this a current diagnosis for this admission?: Yes Plan: Replete. Will monitor. (12) Metabolic acidosis Is this a current diagnosis for this admission?: Yes Plan: Corrected; will monitor. - Time Time Spent with patient: 15-24 minutes Medications reviewed and adjusted accordingly: Yes Anticipated discharge: Home Within: within 24 hours
[2017-07-19] MEDS: LORAZEPAM 1 MG TABLET PO PRN ×2 (12:18→18:43)
[2017-07-19] MEDS: NORMAL SALINE 1000 ML 1,000 ML with THIAMINE HCL 100 MG, MVI, ADULT NO.1 WITH VIT K 10 ... IV SCH ×4 (17:57)
[2017-07-19] MEDS ORDERED: LORAZEPAM INJ 2 MG/1 ML VIAL IV SCH (20:00)
[2017-07-19] MEDS: GUAIFENESIN 600 MG TABLET.SA PO SCH (22:07)
[2017-07-20 05:46] LABS: HEMOGLOBIN 12.1 g/dL (12.0-15.5); HGB HCT DIFFERENCE 3.3; MEAN CORPUSCULAR HEMOGLOBIN 36.7 pg (27.0-33.4); MEAN CORPUSCULAR HGB CONC 36.7 g/dL (32.0-36.0); MEAN CORPUSCULAR VOLUME 100 fl (80-97); RED BLOOD COUNT 3.29 10^6/uL (3.72-5.28); WHITE BLOOD COUNT 4.8 10^3/uL (4.0-10.5)
[2017-07-20 06:04] LABS: ANION GAP 10 (5-19); BLOOD UREA NITROGEN 6 mg/dL (7-20); CALCIUM 8.8 mg/dL (8.4-10.2); CARBON DIOXIDE 26 mmol/L (22-30); CHLORIDE 104 mmol/L (98-107); CREATININE RESULT 0.66 mg/dL (0.52-1.25); GLUCOSE 97 mg/dL (75-110); POTASSIUM 3.5 mmol/L (3.6-5.0); SODIUM 139.5 mmol/L (137-145)
[2017-07-20] MEDS: LORAZEPAM 1 MG TABLET PO PRN (06:23)
--- NOTE | 2017-07-20 08:42 | PDOC DISCHARGE SUMMARY ---
General - Admit/Disc Date/PCP Admission Date/Primary Care Provider: 07/18/17 03:01 Discharge Date: 07/20/17 - Discharge Diagnosis (1) Alcohol abuse Is this a current diagnosis for this admission?: Yes Summary: Pt counselled on cessation. She is interested in Intensive Out Patient Therapy. Met with SW to discuss area resources. Recommend follow-up with PCP, outpatient psychiatry/substance abuse counselling, and consideration of attending AA meetings. (2) Epigastric abdominal pain Summary: Resolved. PT provided PPI, initially clear liquids and advanced as tolerated. Lipase trended down LFTs essentially unremarkable. (3) Nausea and vomiting Is this a current diagnosis for this admission?: Yes Summary: Resolved. (4) Alcohol intoxication Is this a current diagnosis for this admission?: Yes Summary: Pt provided prn lorazepam for agitation. Fluid volume status and electrolytes were corrected. She received IV thiamine and daily banana bag. Seizure precautions were instituted; pt did not display any evidence of seizure-like activity. (5) Diarrhea Is this a current diagnosis for this admission?: Yes Summary: Improved. Presumed to be noninfectious. (6) Anxiety Is this a current diagnosis for this admission?: Yes Summary: Home medications were resumed. PRN ativan for anxiety/agitation. (7) Bipolar disorder Is this a current diagnosis for this admission?: Yes (8) Depression Is this a current diagnosis for this admission?: Yes (9) Hyponatremia Is this a current diagnosis for this admission?: Yes Summary: Replete. PT recieved IVF and Chem-7 was monitored. Sodium corrected and IVF discontinued. Tolerating PO well. (10) Hypokalemia Is this a current diagnosis for this admission?: Yes Summary: Replete. Potassium replacement with follow-up chemistry monitoring. Tolerating p.o. (11) Hypomagnesemia Is this a current diagnosis for this admission?: Yes Summary: Replete. Magnesium replacement with follow-up chemistry monitoring. Tolerating p.o. (12) Metabolic acidosis Is this a current diagnosis for this admission?: Yes - Additional Information Resuscitation Status: Full Code Discharge Diet: As Tolerated, Regular Discharge Activity: Activity As Tolerated Home Medications: Clonazepam [Klonopin 1 mg Tablet] 1 mg PO TIDP PRN 07/18/17 Hydroxyzine Pamoate [Vistaril 50 mg Capsule] 50 mg PO QHS 07/18/17 Lamotrigine [Lamictal] 200 mg PO DAILY 07/18/17 Omeprazole 20 mg PO DAILY 07/18/17 Quetiapine Fumarate [Quetiapine Fumarate ER] 200 mg PO QHS 07/18/17 Telmisartan/Hydrochlorothiazid [Micardis HCT 40-12.5 mg Tablet] 1 tab PO DAILY 07/18/17 Topiramate [Topamax] 50 mg PO QHS 07/18/17 Ondansetron [Ondansetron Odt] 8 mg PO Q8HP PRN #12 tab.rapdis 07/20/17 History of Present Illness Patient complains of: She has no complaints today. She is optimistic about her discharged home with intensive outpatient follow-up. History of Present Illness: Per H&P by Dr. Hand: CHETNA TERRELL is a 42 year old female with underlying bipolar disorder, hypertension, anxiety and depression, without suicidal or homicidal ideation, along with ongoing alcohol abuse who presents to the emergency room for evaluation of above complaints. Patient has a history of alcohol abuse, but actually had been sober for quite a long time prior to starting back drinking 8 months ago. However, over the last week her alcohol intake is increased significantly. Over that time span, she has been drinking more than a case of beer per day. She has had nausea and a number of episodes of vomiting. Possible scattered amount of coffee-ground material. No bright red blood. No melena. Some shaking, although no karla chills or fever. Chronic intermittent diarrhea; patient is irritable bowel syndrome. Patient does carry a history of peptic ulcer disease, and has had previous upper endoscopy. Denies any knowledge of esophageal varices. She has had no karla withdrawal seizure or delirium tremens. Hospital Course Hospital Course: Patient was admitted with acute intoxication secondary to alcohol abuse with metabolic acidosis and hypomagnesia, hypokalemia, hyponatremia. She received IV thiamine and a banana bag daily. Alcohol withdrawal protocol was instituted with scheduled and as needed Ativan initially. She did experience mild epigastric pain and nausea, however did not have further episodes of emesis. Her electrolytes were corrected with IV fluids and replacement. She was weaned from scheduled Ativan successfully required as needed dosing only once overnight. She has met with the information systems planner and received information on area support services; she has discussed with her her interest in attending an intensive outpatient therapy. She is discharged home today in good condition with recommendations for close follow-up with her primary care provider. Physical Exam Vital Signs: Temp Pulse Resp BP Pulse Ox 98.5 F 82 18 131/69 H 97 07/20/17 03:30 07/20/17 07:00 07/20/17 03:30 07/20/17 03:30 07/20/17 03:30 Intake & Output 07/19/17 07/20/17 07/21/17 06:59 06:59 06:59 Intake Total 2890 2661 Balance 2890 2661 General appearance: PRESENT: no acute distress, obese, well-developed, well- nourished Head exam: PRESENT: atraumatic, normocephalic Eye exam: PRESENT: conjunctiva pink, EOMI, PERRLA. ABSENT: scleral icterus Ear exam: PRESENT: normal external ear exam Mouth exam: PRESENT: moist, tongue midline Neck exam: ABSENT: carotid bruit, JVD, lymphadenopathy, thyromegaly Respiratory exam: PRESENT: clear to auscultation mira. ABSENT: rales, rhonchi, wheezes Cardiovascular exam: PRESENT: RRR. ABSENT: diastolic murmur, rubs, systolic murmur Pulses: PRESENT: normal dorsalis pedis pul Vascular exam: PRESENT: normal capillary refill GI/Abdominal exam: PRESENT: normal bowel sounds, soft. ABSENT: distended, guarding, mass, organolmegaly, rebound, tenderness Rectal exam: PRESENT: deferred Extremities exam: PRESENT: full ROM. ABSENT: calf tenderness, clubbing, pedal edema Neurological exam: PRESENT: alert, awake, oriented to person, oriented to place , oriented to time, oriented to situation, CN II-XII grossly intact. ABSENT: motor sensory deficit Psychiatric exam: PRESENT: appropriate affect, normal mood. ABSENT: homicidal ideation, suicidal ideation Skin exam: PRESENT: dry, intact, warm. ABSENT: cyanosis, rash Results Laboratory Results: 07/20/17 04:50 07/20/17 04:50 07/20/17 07/20/17 04:50 04:50 WBC 4.8 RBC 3.29 L Hgb 12.1 Hct 33.0 L MCV 100 H MCH 36.7 H MCHC 36.7 H RDW 13.0 Plt Count 135 L Sodium 139.5 Potassium 3.5 L Chloride 104 Carbon Dioxide 26 Anion Gap 10 BUN 6 L Creatinine 0.66 Est GFR ( Amer) > 60 Est GFR (Non-Af Amer) > 60 Glucose 97 Calcium 8.8 Plan Discharge Plan: Discharge to home. Follow-up with primary care provider within 7-10 days. Patient provided information on local resources with regard to outpatient therapy. Recommend psychiatry and/or substance abuse counseling services. Recommend the patient strongly consider attending AA meetings. Time Spent: Less than 30 Minutes
[2017-07-20 09:14] VITALS: BP 137/81
[2017-07-20] MEDS: ENOXAPARIN SODIUM INJ 40 MG/0.4 ML DISP.SYRIN SUBCUT SCH (09:23)
[2017-07-20] MEDS: GUAIFENESIN 600 MG TABLET.SA PO SCH (09:28)
[2017-07-20] MEDS: LAMOTRIGINE 100 MG TABLET PO SCH (09:32)
[2017-07-20] MEDS: LOSARTAN POTASSIUM 50 MG TABLET PO SCH (09:32)
[2017-07-20] MEDS: FAMOTIDINE INJ/PF 20 MG/2 ML SDV IV SCH (09:33)
[2017-07-20] MEDS: HYDROCHLOROTHIAZIDE 12.5 MG CAPSULE PO SCH (09:33)
[2017-07-20] MEDS ORDERED: LORAZEPAM INJ 2 MG/1 ML VIAL IV SCH (18:00)
[2017-07-21] MEDS ORDERED: LORAZEPAM INJ 2 MG/1 ML VIAL IV SCH (20:00)
[2017-07-23] MEDS ORDERED: LORAZEPAM INJ 2 MG/1 ML VIAL IV SCH
== END 2017-07-20 12:40 | disposition home or self-care (01) | DRG 897 ==
LOC: ER 18:37 → UNDOADMIN 23:27 → EH 23:27 → 3W 07-18 01:10 → EH 07-18 01:10 → 3W 07-18 03:01 → EH 07-18 03:01
PROVIDERS: ADMIT Family Medicine; ATTEND Family Medicine
DX: F10.129 Alcohol abuse with intoxication, unspecified (principal); E87.2 Acidosis; E87.1 Hypo-osmolality and hyponatremia; K29.70 Gastritis, unspecified, without bleeding; R19.7 Diarrhea, unspecified; I10 Essential (primary) hypertension; K21.9 Gastro-esophageal reflux disease without esophagitis; L40.9 Psoriasis, unspecified; F41.9 Anxiety disorder, unspecified; F31.9 Bipolar disorder, unspecified; E87.6 Hypokalemia; E83.42 Hypomagnesemia; Z79.899 Other long term (current) drug therapy; Z87.11 Personal history of peptic ulcer disease; Z87.891 Personal history of nicotine dependence; Z88.0 Allergy status to penicillin; Z88.8 Allergy status to other drugs, medicaments and biological substances
CPT/HCPCS: 36415; 80048; 80053; 80307; 81001; 83690; 83735; 84443; 85025; 85027; 93005; 93010; 96361; 96374; 99285; J1650; J2060; J2270; J2405; J3411; J3475; J3480; J3490; J7030; J7050; S0028; S0119

== ENCOUNTER 2017-10-27 20:47 | Emergency (ER) | payer OTHER ==
[2017-10-27] MEDS ORDERED: DIAZEPAM INJ 10 MG/2 ML DISP.SYRIN IV ONE (22:28)
[2017-10-27] MEDS ORDERED: THIAMINE HCL 100 MG, FOLIC ACID 1 MG in NORMAL SALINE 250 ML IV ONE (22:28)
[2017-10-27] MEDS ORDERED: NORMAL SALINE 1000 ML 500 ML IV ONE (22:28)
[2017-10-27 22:49] LABS: ABSOLUTE BASOPHILS # (AUTO) 0.1 10^3/uL (0.0-0.2); ABSOLUTE LYMPHOCYTES (AUTO) 2.5 10^3/uL (0.5-4.7); ABSOLUTE MONOCYTES (AUTO) 0.7 10^3/uL (0.1-1.4); ABSOLUTE NEUT (AUTO) 4.2 10^3/uL (1.7-8.2); BASOPHILS % (AUTO) 1.2 % (0-2); EOSINOPHILS % (AUTO) 0.1 % (0-6); HEMATOCRIT 41.7 % (36.0-47.0); HEMOGLOBIN 14.5 g/dL (12.0-15.5); LYMPHOCYTES % (AUTO) 33.6 % (13-45); MEAN CORPUSCULAR HEMOGLOBIN 32.9 pg (27.0-33.4); MEAN CORPUSCULAR HGB CONC 34.7 g/dL (32.0-36.0); MEAN CORPUSCULAR VOLUME 95 fl (80-97); MONOCYTES % (AUTO) 8.9 % (3-13); PLATELET COUNT 309 10^3/uL (150-450); RED CELL DISTRIBUTION WIDTH 14.9 % (11.5-14.0); SEGMENTED NEUTROPHILS % (AUTO) 56.2 % (42-78); TOTAL CELLS COUNTED % (AUTO) 100 %; WHITE BLOOD COUNT 7.5 10^3/uL (4.0-10.5)
[2017-10-27 22:59] LABS: ALBUMIN 5.5 g/dL (3.5-5.0); BLOOD UREA NITROGEN 9 mg/dL (7-20); TOTAL PROTEIN 8.5 g/dL (6.3-8.2)
[2017-10-27 23:01] LABS: ALANINE AMINOTRANSFERASE 28 U/L (9-52); ALCOHOL 227 mg/dL (NONE DETECTED); ALKALINE PHOSPHATASE 63 U/L (38-126); ASPARTATE AMINO TRANSFERASE 24 U/L (14-36); BILIRUBIN,DIRECT 0.2 mg/dL (0.0-0.4); BILIRUBIN,TOTAL 0.3 mg/dL (0.2-1.3); CALCIUM 9.9 mg/dL (8.4-10.2)
[2017-10-27 23:05] LABS: GLUCOSE 126 mg/dL (75-110)
[2017-10-27 23:14] LABS: CARBON DIOXIDE 19 mmol/L (22-30); CHLORIDE 100 mmol/L (98-107); POTASSIUM 4.1 mmol/L (3.6-5.0); SODIUM 140.4 mmol/L (137-145)
[2017-10-27 23:17] LABS: ANION GAP 21 (5-19)
[2017-10-27] MEDS ORDERED: FOLIC ACID INJ 5 MG/1 ML 10 ML VIAL ONE (23:19)
[2017-10-27] MEDS ORDERED: THIAMINE HCL INJ 200 MG/2 ML VIAL ONE (23:19)
[2017-10-27] MEDS ORDERED: ONDANSETRON HCL INJ/PF 4 MG/2 ML SDV IV ONE (23:51)
[2017-10-27] MEDS ORDERED: ONDANSETRON ODT 4 MG TAB (6 TAB/ER DISP) PO PRN (23:54)
--- NOTE | 2017-10-27 23:56 | ER Document Report ---
ED General - General Chief Complaint: Alcohol Withdrawl Stated Complaint: WEAKNESS Time Seen by Provider: 10/27/17 22:26 Notes: Patient is a 42-year-old female with a past medical history of alcohol dependency who presents with persistent vomiting, diarrhea, tremors, and diffuse body aches. She reports that she went on a binge of alcohol this weekend that continued until approximately 5 hours prior to arrival. Patient describes that since that time she has had persistent, nonbilious vomiting anytime she tries to eat or drink anything. Nothing improves or worsens her symptoms. She states this feels very similar to when she has begun to have withdrawals in the past. She is here in the company of her . I have evaluated this patient once in the past at which time she required hospitalization for severe hyponatremia in the setting of persistent alcohol abuse. Patient states she would like to get sober. She denies any fever, chest pain or shortness of breath. She does note a raw, aching, constant, moderately severe pain in her epigastrium. This pain is worsened with vomiting. Nothing improves the pain. TRAVEL OUTSIDE OF THE [place] IN LAST 30 DAYS: No - Related Data Allergies/Adverse Reactions: butalbital [From Fioricet] Allergy (Verified 07/17/17 18:43) Penicillins Allergy (Verified 07/17/17 18:43) Past Medical History - General Information source: Patient - Social History Smoking Status: Former Smoker Frequency of alcohol use: Heavy Drug Abuse: None Lives with: Spouse/Significant other Family History: Reviewed & Not Pertinent, Other - Father had renal carcinoma, mom has history of CHF - Past Medical History Cardiac Medical History: Reports: Hx Hypertension Denies: Hx Atrial Fibrillation, Hx Congestive Heart Failure, Hx Coronary Artery Disease, Hx DVT, Hx Heart Attack, Hx Hypercholesterolemia, Hx Pulmonary Embolism Pulmonary Medical History: Denies: Hx Asthma, Hx COPD, Hx Sleep Apnea Neurological Medical History: Denies: Hx Seizures Endocrine Medical History: Denies: Hx Diabetes Mellitus Type 1, Hx Diabetes Mellitus Type 2, Hx Hyperthyroidism, Hx Hypothyroidism Renal/ Medical History: Denies: Hx Peritoneal Dialysis GI Medical History: Reports: Hx Gastroesophageal Reflux Disease - History of peptic ulcer disease. Denies: Hx Cirrhosis, Hx Hepatitis Musculoskeltal Medical History: Denies Hx Arthritis Skin Medical History: Reports Hx Psoriasis Psychiatric Medical History: Reports: Hx Anxiety - Sees Dr. Ascencio and takes Lamictal, Xanax, Seroquel, and Vistaril, Hx Depression Infectious Medical History: Denies: Hx Hepatitis Past Surgical History: Reports: Hx Abdominal Surgery - Tummy Tuck, Hx Appendectomy, Hx Breast Surgery - Augmentation, Hx Section - x1, tubal , Hx Orthopedic Surgery - Left arm fx, Hx Tubal Ligation - Immunizations Hx Diphtheria, Pertussis, Tetanus Vaccination: Yes Review of Systems - Review of Systems Notes: Constitutional: Negative for fever. Positive for body aches HENT: Negative for sore throat. Eyes: Negative for visual changes. Cardiovascular: Negative for chest pain. Respiratory: Negative for shortness of breath. Gastrointestinal: Positive for epigastric abdominal pain, vomiting and diarrhea Genitourinary: Negative for dysuria. Musculoskeletal: Negative for back pain. Skin: Negative for rash. Neurological: Negative for headaches, weakness or numbness. 10 point ROS negative except as marked above and in HPI. Physical Exam - Vital signs Vitals: Temp Pulse Resp BP Pulse Ox 98.8 F 116 H 20 149/94 H 96 10/27/17 20:54 10/27/17 20:54 10/27/17 20:54 10/27/17 20:54 10/27/17 20:54 Interpretation: Tachycardic Notes: PHYSICAL EXAMINATION: GENERAL: Moderately ill in appearance, appears uncomfortable but in no acute distress HEAD: Atraumatic, normocephalic. EYES: Pupils equal round and reactive to light, extraocular movements intact, sclera anicteric, conjunctiva are normal. ENT: nares patent, oropharynx clear without exudates. Moderately dry mucous membranes. NECK: Normal range of motion, supple without lymphadenopathy LUNGS: Breath sounds clear to auscultation bilaterally and equal. No wheezes rales or rhonchi. HEART: Regular tachycardia without murmurs ABDOMEN: Soft, mild epigastric abdominal tenderness to palpation without any additional localized tenderness, normoactive bowel sounds. No guarding, no rebound. No masses appreciated. EXTREMITIES: Normal range of motion, no pitting or edema. No cyanosis. NEUROLOGICAL: No focal neurological deficits. Moves all extremities spontaneously and on command. PSYCH: Moderately anxious SKIN: Warm, Dry, normal turgor, no rashes or lesions noted. Course - Re-evaluation Re-evalutation: 10/27/17 23:52 Patient presents with likely alcoholic gastritis with persistent vomiting and upper abdominal pain in the setting of drinking heavily for the past 3 days. At time of presentation patient has some mild withdrawal symptoms despite her alcohol level still being elevated. Initially her vitals showed tachycardia which improved after administration of diazepam and IV fluids. Thiamine and folate were provided. Patient had improvement of her symptoms after treatment and was able to tolerate oral intake without difficulty. I had an extensive conversation with the patient and her at the bedside about using a Librium taper at home and the has agreed to control the medicine at all times. Patient's laboratories are otherwise unremarkable today without any evidence of an acute hepatitis, pancreatitis, or significant hyponatremia. No indication for hospitalization. I have encouraged the patient to consider inpatient rehab. At this time will discharge with return precautions and follow -up recommendations. Verbal discharge instructions given a the bedside and opportunity for questions given. Medication warnings reviewed. Patient is in agreement with this plan and has verbalized understanding of return precautions and the need for primary care follow-up in the next 24-72 hours. - Vital Signs Vital signs: Temp Pulse Resp BP Pulse Ox 98.4 F 76 18 139/85 H 95 10/28/17 02:05 10/28/17 02:05 10/28/17 02:05 10/28/17 02:05 10/28/17 02:05 - Laboratory Result Diagrams: 10/27/17 22:35 10/27/17 22:35 Laboratory results interpreted by me: 10/27/17 10/27/17 22:35 22:35 RDW 14.9 H Carbon Dioxide 19 L Anion Gap 21 H Glucose 126 H Total Protein 8.5 H Albumin 5.5 H Discharge - Discharge Clinical Impression: Epigastric abdominal pain Nausea and vomiting Qualifiers: Vomiting type: unspecified Vomiting Intractability: non-intractable Qualified Code(s): R11.2 - Nausea with vomiting, unspecified Alcohol withdrawal Qualifiers: Complication of substance-induced condition: uncomplicated Qualified Code(s): F10.230 - Alcohol dependence with withdrawal, uncomplicated Alcoholic gastritis Qualifiers: Chronicity: acute Gastritis bleeding: presence of bleeding unspecified Qualified Code(s): K29.20 - Alcoholic gastritis without bleeding Condition: Stable Disposition: HOME, SELF-CARE Additional Instructions: You have been sent home on medication to help withdraw from alcohol. You should only start taking this medication and discontinue alcohol if you are seroius about quitting alcohol. This will not completely remove all your symptoms from withdrawal should make it so that your symptoms are more manageable. You need to return to the emergency room immediately if you pass out, or vomiting so severely your unable to keep anything down, start hallucinate, or have any other symptoms that are of concern to you. You need to go to an inpatient program and should speak with your primary care doctor regarding these resources. How to take the librium to come off alcohol. DO NOT DRINK ANY ALCOHOL WHILE USING THIS MEDICATION Day 1-3: 75mg PO TID Day 4-6: 50mg PO TID Day 7-9: 25mg PO TID Day 10-12: 25mg PO BID Day 13-15: 25mg PO daily PRN Prescriptions: Chlordiazepoxide HCl [Librium 25 mg Capsule] 1 cap PO ASDIR PRN #80 capsule PRN Reason: Forms: Return to Work
[2017-10-28] MEDS ORDERED: PROMETHAZINE HCL INJ 25 MG/1 ML VIAL ONE (01:04)
[2017-10-28] MEDS ORDERED: PROMETHAZINE HCL INJ 25 MG/1 ML VIAL IV ONE (01:04)
[2017-10-28 02:06] VITALS: BP 139/85
== END 2017-10-28 02:11 | disposition home or self-care (01) ==
LOC: ER 20:47
DX: R10.13 Epigastric pain (principal); R11.2 Nausea with vomiting, unspecified; F10.230 Alcohol dependence with withdrawal, uncomplicated; K29.20 Alcoholic gastritis without bleeding; R53.1 Weakness; M79.1 Myalgia; I10 Essential (primary) hypertension; Z88.0 Allergy status to penicillin; Z98.51 Tubal ligation status
CPT/HCPCS: 99285; 96375; 96365; 36415; 80307; 85025; 80053; J3360; J3490; J2550; J3411; J2405; J7030; J7050

== ENCOUNTER 2018-07-29 14:08 | Emergency (ER) | payer OTHER ==
[2018-07-29 14:17] VITALS: BP 123/79
--- NOTE | 2018-07-29 14:57 | ER Document Report ---
ED Medical Screen (RME) - General Chief Complaint: Facial Swelling Stated Complaint: THROAT SWELLING/POSSIBLE ALLERGIC REACTION Time Seen by Provider: 07/29/18 14:40 TRAVEL OUTSIDE OF THE [place] IN LAST 30 DAYS: No - Related Data Allergies/Adverse Reactions: butalbital [From Fioricet] Allergy (Verified 07/29/18 14:10) Penicillins Allergy (Verified 07/29/18 14:10) Past Medical History - Social History Chew tobacco use (# tins/day): No Frequency of alcohol use: None Drug Abuse: None Family history: CAD - Past Medical History Cardiac Medical History: Reports: Hx Hypertension Denies: Hx Atrial Fibrillation, Hx Congestive Heart Failure, Hx Coronary Artery Disease, Hx DVT, Hx Heart Attack, Hx Hypercholesterolemia, Hx Pulmonary Embolism Pulmonary Medical History: Denies: Hx Asthma, Hx COPD, Hx Sleep Apnea Neurological Medical History: Denies: Hx Seizures Endocrine Medical History: Denies: Hx Diabetes Mellitus Type 1, Hx Diabetes Mellitus Type 2, Hx Hyperthyroidism, Hx Hypothyroidism Renal/ Medical History: Denies: Hx Peritoneal Dialysis GI Medical History: Reports: Hx Gastroesophageal Reflux Disease - History of peptic ulcer disease. Denies: Hx Cirrhosis, Hx Hepatitis Musculoskeltal Medical History: Denies Hx Arthritis Skin Medical History: Reports Hx Psoriasis Psychiatric Medical History: Reports: Hx Anxiety - Sees Dr. Ascencio and takes Lamictal, Xanax, Seroquel, and Vistaril, Hx Depression - anxiety Infectious Medical History: Denies: Hx Hepatitis Past Surgical History: Reports: Hx Abdominal Surgery - Tummy Tuck, Hx Appendectomy, Hx Breast Surgery - Augmentation, Hx Section - x1, tubal , Hx Orthopedic Surgery - Left arm x2, Hx Tubal Ligation - Immunizations Hx Diphtheria, Pertussis, Tetanus Vaccination: Yes History of Influenza Vaccine for 07/2017 - 12/2017 Season: No Physical Exam - Vital signs Vitals: Temp Pulse Resp BP Pulse Ox 98.8 F 80 16 123/79 96 07/29/18 14:16 07/29/18 14:16 07/29/18 14:16 07/29/18 14:16 07/29/18 14:16 Course - Vital Signs Vital signs: Temp Pulse Resp BP Pulse Ox 98.8 F 80 16 123/79 96 07/29/18 14:16 07/29/18 14:16 07/29/18 14:16 07/29/18 14:16 07/29/18 14:16 Doctor's Discharge - Discharge Clinical Impression: Glossitis, Tension headache, Viral syndrome Condition: Stable Disposition: HOME, SELF-CARE Additional Instructions: Your symptoms and physical exam are most consistent with a viral illness causing something called glossitis which means inflammation to the surface of the tongue. You also seem to have a muscle tension headache causing the scalp tenderness and headache. You should drink plenty of fluids, try ice chips in your mouth for some relief. Avoid taking antihistamines for the next few days. Get plenty of rest. Follow-up with your doctor if not improving. RETURN TO THE EMERGENCY ROOM IF ANY NEW OR WORSENING SYMPTOMS.
--- NOTE | 2018-07-29 20:31 | ER Document Report ---
ED General - General Chief Complaint: Facial Swelling Stated Complaint: THROAT SWELLING/POSSIBLE ALLERGIC REACTION Time Seen by Provider: 07/29/18 14:40 Mode of Arrival: Ambulatory Information source: Patient, [facility] Records Notes: This 43-year-old female patient comes emergency room complaining of possible reaction to Atarax. She does take it regularly. She took a dose last night, dose this morning for her anxiety. When she took a dose this afternoon she noted what she thought was swelling to her face and throat. At this time she complains of her tongue feeling funny and having a headache. TRAVEL OUTSIDE OF THE [place] 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 sAcencio and takes Lamictal, Xanax, Seroquel, and Vistaril, Hx Depression Past Surgical History: Reports: Hx Abdominal Surgery - Tummy Tuck, Hx Appendectomy, Hx Breast Surgery - Augmentation, Hx Section - x1, Hx Orthopedic Surgery - Left arm x2, Hx Tubal Ligation - Immunizations Hx Diphtheria, Pertussis, Tetanus Vaccination: Yes Review of Systems - Review of Systems Constitutional: No symptoms reported EENT: No symptoms reported Cardiovascular: No symptoms reported Respiratory: No symptoms reported Gastrointestinal: No symptoms reported Genitourinary: No symptoms reported Female Genitourinary: No symptoms reported Musculoskeletal: No symptoms reported Skin: No symptoms reported Hematologic/Lymphatic: No symptoms reported Neurological/Psychological: Anxiety Physical Exam - Vital signs Vitals: Temp Pulse Resp BP Pulse Ox 98.8 F 80 16 123/79 96 07/29/18 14:16 07/29/18 14:16 07/29/18 14:16 07/29/18 14:16 07/29/18 14:16 Interpretation: Normal - General General appearance: Appears well, Alert In distress: None - HEENT Head: Normocephalic, Atraumatic, Tenderness - There is some tenderness to palpate the scalp, especially in the occipital nuchal region Eyes: Normal Pupils: PERRL Mouth/Lips: Other - The lower lip shows desquamating hardened skin over the top of the lower lip consistent with a viral type illness. The tongue has a velvety type texture particularly along the edges with sensitive papilla also consistent with viral illness. There are no oral or pharyngeal ulcerations noted. Neck: Normal - There are no tender anterior cervical lymph nodes noted. - Respiratory Respiratory status: No respiratory distress Breath sounds: Normal - Cardiovascular Rhythm: Regular - Abdominal Inspection: Normal Bowel sounds: Normal Tenderness: Nontender - Back Back: Normal - Extremities General upper extremity: Normal inspection General lower extremity: Normal inspection - Neurological Neuro grossly intact: Yes - Psychological Associated symptoms: Normal affect, Normal mood - Skin Skin Temperature: Warm Skin Moisture: Dry Skin Color: Normal Course - Vital Signs Vital signs: Temp Pulse Resp BP Pulse Ox 98.8 F 80 16 123/79 96 07/29/18 14:16 07/29/18 14:16 07/29/18 14:16 07/29/18 14:16 07/29/18 14:16 Discharge - Discharge Clinical Impression: Glossitis, Tension headache, Viral syndrome Condition: Stable Disposition: HOME, SELF-CARE Additional Instructions: Your symptoms and physical exam are most consistent with a viral illness causing something called glossitis which means inflammation to the surface of the tongue. You also seem to have a muscle tension headache causing the scalp tenderness and headache. You should drink plenty of fluids, try ice chips in your mouth for some relief. Avoid taking antihistamines for the next few days. Get plenty of rest. Follow-up with your doctor if not improving. RETURN TO THE EMERGENCY ROOM IF ANY NEW OR WORSENING SYMPTOMS. Referrals: ROSSANA RESENDIZ DO [Primary Care Provider] - Follow up as needed
== END 2018-07-29 15:01 | disposition home or self-care (01) ==
LOC: ER 14:08
DX: K14.0 Glossitis (principal); G44.209 Tension-type headache, unspecified, not intractable; B34.9 Viral infection, unspecified; R22.0 Localized swelling, mass and lump, head; F17.210 Nicotine dependence, cigarettes, uncomplicated; I10 Essential (primary) hypertension; Z88.0 Allergy status to penicillin
CPT/HCPCS: 99283

== ENCOUNTER 2019-03-12 22:36 | Emergency (ER) | payer OTHER ==
[2019-03-13 00:02] LABS: ABSOLUTE LYMPHOCYTES (AUTO) 2.9 10^3/uL (0.5-4.7); ABSOLUTE MONOCYTES (AUTO) 0.6 10^3/uL (0.1-1.4); ABSOLUTE NEUT (AUTO) 4.5 10^3/uL (1.7-8.2); BASOPHILS % (AUTO) 0.3 % (0-2); EOSINOPHILS % (AUTO) 0.4 % (0-6); HEMATOCRIT 40.8 % (36.0-47.0); HEMOGLOBIN 14.1 g/dL (12.0-15.5); LYMPHOCYTES % (AUTO) 35.9 % (13-45); MEAN CORPUSCULAR HEMOGLOBIN 32.6 pg (27.0-33.4); MEAN CORPUSCULAR HGB CONC 34.6 g/dL (32.0-36.0); MEAN CORPUSCULAR VOLUME 94 fl (80-97); MONOCYTES % (AUTO) 7.5 % (3-13); PLATELET COUNT 224 10^3/uL (150-450); RED BLOOD COUNT 4.32 10^6/uL (3.72-5.28); RED CELL DISTRIBUTION WIDTH 14.3 % (11.5-14.0); SEGMENTED NEUTROPHILS % (AUTO) 55.9 % (42-78); TOTAL CELLS COUNTED % (AUTO) 100 %; WHITE BLOOD COUNT 8.1 10^3/uL (4.0-10.5)
[2019-03-13 00:05] LABS: ALANINE AMINOTRANSFERASE 36 U/L (9-52); ALKALINE PHOSPHATASE 70 U/L (38-126); ANION GAP 12 (5-19); ASPARTATE AMINO TRANSFERASE 41 U/L (14-36); BILIRUBIN,DIRECT 0.3 mg/dL (0.0-0.4); BILIRUBIN,TOTAL 1.3 mg/dL (0.2-1.3); BLOOD UREA NITROGEN 9 mg/dL (7-20); CALCIUM 9.4 mg/dL (8.4-10.2); CARBON DIOXIDE 27 mmol/L (22-30); CHLORIDE 98 mmol/L (98-107); GLUCOSE 103 mg/dL (75-110); POTASSIUM 3.8 mmol/L (3.6-5.0); SODIUM 136.5 mmol/L (137-145); TOTAL PROTEIN 8.7 g/dL (6.3-8.2)
[2019-03-13 00:08] LABS: APPEARANCE,URINE CLOUDY; BILIRUBIN,URINE NEGATIVE (NEGATIVE); COLOR,URINE AMBER; GLUCOSE, URINE NEGATIVE (NEGATIVE); KETONES,URINE NEGATIVE (NEGATIVE); LEUKOCYTE ESTERASE,URINE NEGATIVE (NEGATIVE); NITRITE,URINE NEGATIVE (NEGATIVE); PROTEIN,URINE NEGATIVE (NEGATIVE); UROBILINOGEN,URINE NEGATIVE mg/dL (<2.0)
[2019-03-13 00:14] LABS: ALCOHOL < 10 mg/dL (NONE DETECTED)
[2019-03-13 00:36] LABS: URINE AMPHETAMINES SCREEN NEGATIVE; URINE BARBITURATES SCREEN NEGATIVE; URINE BENZODIAZEPINES SCREEN NEGATIVE; URINE COCAINE SCREEN NEGATIVE; URINE MARIJUANA (THC) SCREEN NEGATIVE; URINE METHADONE SCREEN NEGATIVE; URINE PHENCYCLIDINE SCREEN NEGATIVE
[2019-03-13] MEDS ORDERED: DIAZEPAM INJ 10 MG/2 ML DISP.SYRIN IV ONE (01:21)
[2019-03-13] MEDS ORDERED: RINGERS SOLUTION,LACTATED 1,000 ML IV ONE (01:21)
--- NOTE | 2019-03-13 01:25 | ER Document Report ---
ED General - General Chief Complaint: Alcohol Withdrawl Stated Complaint: ALCOHOL DETOX Time Seen by Provider: 03/13/19 00:53 Primary Care Provider: ROSSANA RESENDIZ DO [Primary Care Provider] - Follow up tomorrow Notes: Patient is a 43-year-old female with past medical history of alcoholism who presents with concern of alcohol withdrawal. Patient's last drink was approximately 24 hours ago. States that since that time she has had progressively worsening tremulousness, nausea, restlessness and difficulty sleeping. States this feels very similar when she has had withdrawal in the past. Nothing seems to improve or worsen her symptoms. Patient states that she is determined to become sober again as she did have almost 1 year of sobriety after coming to the emergency department and going through a Librium taper in October 2017. States that she has relapsed for the past 2 to 3 months. She denies focal weakness, numbness, hallucinations or confusion. TRAVEL OUTSIDE OF THE [place] IN LAST 30 DAYS: No - HPI Onset: This morning Onset/Duration: Persistent Quality of pain: No pain Severity: Moderate Pain Level: Denies Associated symptoms: Nausea Exacerbated by: Denies Relieved by: Denies Similar symptoms previously: Yes Recently seen / treated by doctor: No - Related Data Allergies/Adverse Reactions: butalbital [From Fioricet] Allergy (Verified 03/12/19 23:23) Penicillins Allergy (Verified 03/12/19 23:23) Past Medical History - General Information source: Patient - Social History Smoking Status: Never Smoker Frequency of alcohol use: Heavy Drug Abuse: None Lives with: Spouse/Significant other Family History: Reviewed & Not Pertinent, Other - Father had renal carcinoma, mom has history of CHF Patient has suicidal ideation: No Patient has homicidal ideation: No - Past Medical History Cardiac Medical History: Reports: Hx Hypertension Denies: Hx Atrial Fibrillation, Hx Congestive Heart Failure, Hx Coronary Artery Disease, Hx DVT, Hx Heart Attack, Hx Hypercholesterolemia, Hx Pulmonary Embolism Pulmonary Medical History: Denies: Hx Asthma, Hx COPD, Hx Sleep Apnea Neurological Medical History: Denies: Hx Seizures Endocrine Medical History: Denies: Hx Diabetes Mellitus Type 1, Hx Diabetes Mellitus Type 2, Hx Hyperthyroidism, Hx Hypothyroidism Renal/ Medical History: Denies: Hx Peritoneal Dialysis GI Medical History: Reports: Hx Gastroesophageal Reflux Disease, Hx Ulcer - Peptic ulcer disease. Denies: Hx Cirrhosis, Hx Hepatitis Musculoskeletal Medical History: Denies Hx Arthritis Skin Medical History: Reports Hx Psoriasis Psychiatric Medical History: Reports: Hx Anxiety - Sees Dr. Ascencio and takes Lamictal, Xanax, Seroquel, and Vistaril, Hx Depression Infectious Medical History: Denies: Hx Hepatitis Past Surgical History: Reports: Hx Abdominal Surgery - Tummy Tuck, Hx Appendectomy, Hx Breast Surgery - Augmentation, Hx Section - x1, Hx Orthopedic Surgery - Left arm x2, Hx Tubal Ligation - Immunizations Hx Diphtheria, Pertussis, Tetanus Vaccination: Yes Review of Systems - Review of Systems Notes: Constitutional: Negative for fever. HENT: Negative for sore throat. Eyes: Negative for visual changes. Cardiovascular: Negative for chest pain. Respiratory: Negative for shortness of breath. Gastrointestinal: Negative for abdominal pain, positive for nausea Genitourinary: Negative for dysuria. Musculoskeletal: Negative for back pain. Skin: Negative for rash. Neurological: Negative for headaches, weakness or numbness. Positive for tremulousness 10 point ROS negative except as marked above and in HPI. Physical Exam - Vital signs Vitals: Temp Pulse Resp BP Pulse Ox 98.4 F 77 16 141/84 H 96 03/12/19 23:12 03/12/19 23:12 03/12/19 23:12 03/12/19 23:12 03/12/19 23:12 Interpretation: Normal Notes: PHYSICAL EXAMINATION: GENERAL: Well-appearing, well-nourished and in no acute distress. HEAD: Atraumatic, normocephalic. EYES: Pupils equal round and reactive to light, extraocular movements intact, sclera anicteric, conjunctiva are normal. ENT: nares patent, oropharynx clear without exudates. Moist mucous membranes. NECK: Normal range of motion, supple without lymphadenopathy LUNGS: Breath sounds clear to auscultation bilaterally and equal. No wheezes rales or rhonchi. HEART: Regular rate and rhythm without murmurs ABDOMEN: Soft, nontender, normoactive bowel sounds. No guarding, no rebound. No masses appreciated. EXTREMITIES: Normal range of motion, no pitting or edema. No cyanosis. NEUROLOGICAL: No focal neurological deficits. Moves all extremities spontaneously and on command. Mildly tremulous PSYCH: Moderately anxious SKIN: Warm, Dry, normal turgor, no rashes or lesions noted. Course - Re-evaluation Re-evalutation: 03/13/19 01:22 Patient presents with tremulousness, nausea and intermittent episodes of vomiting in the setting of discontinuing alcohol roughly 36 hours ago. Patient states that she had had a long period of sobriety since I last saw her roughly 16 months ago. Patient states that she relapsed approximately 2 months ago and has been having on and off binging of alcohol since that time. On exam she is well in appearance, no overt distress, no hallucinations, autonomic instability or alternative signs that would be worrisome for development of delirium tremens. I believe patient is again appropriate for outpatient management with Librium. Vitals are within acceptable limits the time of my evaluation. Tsering hogan has had resolution of tremulousness here in the emergency department after receiving diazepam. At this time will discharge with return precautions and follow-up recommendations. Verbal discharge instructions given a the bedside and opportunity for questions given. Medication warnings reviewed. Patient is in agreement with this plan and has verbalized understanding of return precautions and the need for primary care follow-up in the next 24-72 hours. - Vital Signs Vital signs: Temp Pulse Resp BP Pulse Ox 98.4 F 78 16 141/84 H 96 03/12/19 23:12 03/12/19 23:13 03/12/19 23:12 03/12/19 23:12 03/12/19 23:12 - Laboratory Result Diagrams: 03/12/19 23:32 03/12/19 23:32 Laboratory results interpreted by me: 03/12/19 03/12/19 03/12/19 23:32 23:32 23:32 RDW 14.3 H Sodium 136.5 L AST 41 H Total Protein 8.7 H Urine Blood SMALL H - EKG Interpretation by Me Additional EKG results interpreted by me: 03/13/19 01:23 Sinus rhythm, rate 65. No ST elevations or depressions. QTC is 466. Discharge - Discharge Clinical Impression: Tremulousness Alcohol withdrawal Qualifiers: Complication of substance-induced condition: uncomplicated Qualified Code(s): F10.230 - Alcohol dependence with withdrawal, uncomplicated Condition: Stable Disposition: HOME, SELF-CARE Additional Instructions: You have been sent home on medication to help withdraw from alcohol. You should only start taking this medication and discontinue alcohol if you are seroius about quitting alcohol. This will not completely remove all your symptoms from withdrawal should make it so that your symptoms are more manageable. You need to return to the emergency room immediately if you pass out, or vomiting so severely your unable to keep anything down, start hallucinate, or have any other symptoms that are of concern to you. You need to go to an inpatient program and should speak with your primary care doctor regarding these resources. How to take the librium to come off alcohol. DO NOT DRINK ANY ALCOHOL WHILE USING THIS MEDICATION Day 1-3: 75mg PO TID Day 4-6: 50mg PO TID Day 7-9: 25mg PO TID Day 10-12: 25mg PO BID Day 13-15: 25mg PO daily PRN Prescriptions: Chlordiazepoxide HCl [Librium 25 mg Capsule] 1 cap PO ASDIR PRN #80 capsule PRN Reason: Referrals: ROSSANA RESENDIZ DO [Primary Care Provider] - Follow up tomorrow
[2019-03-13 03:56] VITALS: BP 117/79
--- NOTE | 2019-03-13 09:02 | EKG REPORT ---
SEVERITY:- ABNORMAL ECG - SINUS RHYTHM NONSPECIFIC INTRAVENTRICULAR CONDUCTION DELAY NONSPECIFIC ANTERIOR ST CHANGES : Confirmed by: Panda Gooden MD 13-Mar-2019 09:01:16
== END 2019-03-13 03:14 | disposition home or self-care (01) ==
LOC: ER 22:36
DX: F10.230 Alcohol dependence with withdrawal, uncomplicated (principal); R11.2 Nausea with vomiting, unspecified; R45.1 Restlessness and agitation; I10 Essential (primary) hypertension; Z88.0 Allergy status to penicillin; Z88.5 Allergy status to narcotic agent
CPT/HCPCS: 93005; 99285; 96361; 96374; 36415; 80307 ×2; 84703; 85025; 80053; 81001; 93010; J3360; J7120

== ENCOUNTER 2019-04-26 09:56 | Emergency (ER) | payer OTHER ==
[2019-04-26] MEDS ORDERED: FAMOTIDINE INJ/PF 20 MG/2 ML SDV IV ONE (10:29)
[2019-04-26] MEDS ORDERED: LORAZEPAM INJ 2 MG/1 ML VIAL IV ONE ×2 (10:29→12:45)
[2019-04-26] MEDS ORDERED: PANTOPRAZOLE SODIUM 40 MG VIAL IV ONE (10:30)
[2019-04-26] MEDS ORDERED: ONDANSETRON HCL INJ/PF 4 MG/2 ML SDV IV ONE ×2 (10:30→10:34)
[2019-04-26] MEDS ORDERED: NORMAL SALINE 1000 ML 1,000 ML with POTASSIUM CHLORIDE 20 MEQ, MAGNESIUM SULFATE 8 MEQ,... IV PRN ×5 (10:32)
[2019-04-26 10:49] LABS: INTERNATIONAL RATION (INR) 1.03; PROTHROMBIN TIME 13.5 SEC (11.4-15.4)
[2019-04-26 10:53] LABS: HEMATOCRIT 42.7 % (36.0-47.0); HEMOGLOBIN 14.8 g/dL (12.0-15.5); MEAN CORPUSCULAR HEMOGLOBIN 32.1 pg (27.0-33.4); MEAN CORPUSCULAR HGB CONC 34.6 g/dL (32.0-36.0); MEAN CORPUSCULAR VOLUME 93 fl (80-97); PLATELET COUNT 347 10^3/uL (150-450); RED BLOOD COUNT 4.59 10^6/uL (3.72-5.28); RED CELL DISTRIBUTION WIDTH 13.9 % (11.5-14.0)
[2019-04-26 11:03] LABS: ALANINE AMINOTRANSFERASE 25 U/L (9-52); ALBUMIN 5.3 g/dL (3.5-5.0); ALKALINE PHOSPHATASE 71 U/L (38-126); ASPARTATE AMINO TRANSFERASE 31 U/L (14-36); BILIRUBIN,DIRECT 0.4 mg/dL (0.0-0.4); BILIRUBIN,TOTAL 0.8 mg/dL (0.2-1.3); BLOOD UREA NITROGEN 18 mg/dL (7-20); CARBON DIOXIDE 26 mmol/L (22-30); CHLORIDE 88 mmol/L (98-107); GLUCOSE 180 mg/dL (75-110); POTASSIUM 3.1 mmol/L (3.6-5.0)
[2019-04-26 11:04] LABS: LIPASE 69.9 U/L (23-300)
[2019-04-26 11:09] LABS: ANION GAP 25 (5-19); SODIUM 138.8 mmol/L (137-145)
[2019-04-26 11:15] LABS: ABSOLUTE LYMPHOCYTES# (MANUAL) 3.5 10^3/uL (0.5-4.7); BAND NEUTROPHILS % (MANUAL) 3 % (3-5); BASOPHILS % (MANUAL) 1 % (0-2); EOSINOPHILS % (MANUAL) 0 % (0-6); LYMPHOCYTES % (MANUAL) 13 % (13-45); MONOCYTES % (MANUAL) 4 % (3-13); SEGMENTED NEUTROPHILS % (MAN) 78 % (42-78); TOTAL CELLS COUNTED 100
[2019-04-26 11:17] LABS: PLATELET COMMENT ADEQUATE; POLYCHROMASIA SLIGHT
--- NOTE | 2019-04-26 11:17 | ER Document Report ---
ED General - General Chief Complaint: Nausea/Vomiting Stated Complaint: NAUSEA,VOMITING Time Seen by Provider: 04/26/19 10:16 Mode of Arrival: Medic Information source: Patient TRAVEL OUTSIDE OF THE [place] IN LAST 30 DAYS: No - HPI Notes: Patient is a 44-year-old female history of alcohol abuse presents the emergency department with report of alcohol withdrawal with nausea and vomiting. The patient was seen last month with alcohol withdrawal and was given Librium but ran out several weeks ago and started drinking again 5 days ago. Patient states the vomiting started 3 days ago. She denies any gross coffee-ground emesis, but does report occasional minimal dark red blood mixed with the emesis. She denies any melena. She reports only crampy abdominal pain. The patient denies any history of esophageal varices, GI bleed, pancreatitis. The patient reports no suicidal or homicidal ideation. She denies any donations or fever. No cough or congestion. No significant back pain. No headache. No history of seizures. - Related Data Allergies/Adverse Reactions: butalbital [From Fioricet] Allergy (Verified 03/12/19 23:23) Penicillins Allergy (Verified 03/12/19 23:23) Past Medical History - General Information source: Patient - Social History Smoking Status: Unknown if Ever Smoked Frequency of alcohol use: Heavy Drug Abuse: None Lives with: Alone Family History: Reviewed & Not Pertinent, Other - Father had renal carcinoma, mom has history of CHF Patient has suicidal ideation: No Patient has homicidal ideation: No - Past Medical History Cardiac Medical History: Reports: Hx Hypertension Denies: Hx Atrial Fibrillation, Hx Congestive Heart Failure, Hx Coronary Artery Disease, Hx DVT, Hx Heart Attack, Hx Hypercholesterolemia, Hx Pulmonary Embolism Pulmonary Medical History: Denies: Hx Asthma, Hx COPD, Hx Sleep Apnea Neurological Medical History: Denies: Hx Seizures Endocrine Medical History: Denies: Hx Diabetes Mellitus Type 1, Hx Diabetes Mellitus Type 2, Hx Hyperthyroidism, Hx Hypothyroidism Renal/ Medical History: Denies: Hx Peritoneal Dialysis GI Medical History: Reports: Hx Gastroesophageal Reflux Disease, Hx Ulcer - Peptic ulcer disease. Denies: Hx Cirrhosis, Hx Hepatitis Musculoskeletal Medical History: Denies Hx Arthritis Skin Medical History: Reports Hx Psoriasis Psychiatric Medical History: Reports: Hx Anxiety - Sees Dr. Ascencio and takes Lamictal, Xanax, Seroquel, and Vistaril, Hx Depression Infectious Medical History: Denies: Hx Hepatitis Past Surgical History: Reports: Hx Abdominal Surgery - Tummy Tuck, Hx Appe ndectomy, Hx Breast Surgery - Augmentation, Hx Section - x1, Hx Orthopedic Surgery - Left arm x2, Hx Tubal Ligation - Immunizations Hx Diphtheria, Pertussis, Tetanus Vaccination: Yes Review of Systems - Review of Systems -: Yes All other systems reviewed and negative Physical Exam - Vital signs Vitals: Resp BP Pulse Ox 14 126/77 H 98 04/26/19 10:08 04/26/19 10:08 04/26/19 10:08 - Notes Notes: PHYSICAL EXAMINATION: GENERAL: Moderate discomfort vomiting without hematemesis. HEAD: Atraumatic, normocephalic. EYES: Pupils equal round and reactive to light, extraocular movements intact, conjunctiva are normal. ENT: Nares patent, oropharynx clear without exudates. Dry mucous membranes. NECK: Normal range of motion, supple without lymphadenopathy LUNGS: Breath sounds clear to auscultation bilaterally and equal. No wheezes rales or rhonchi. HEART: Regular rate and rhythm without murmurs ABDOMEN: Soft, nondistended abdomen. No guarding, no rebound. No masses appreciated. Mild generalized abdominal pain, more so upper abdomen. Female : deferred Musculoskeletal: Normal range of motion, no pitting or edema. No cyanosis. NEUROLOGICAL: Cranial nerves grossly intact. Normal speech, normal gait. Normal sensory, motor exams. No gross tremor. PSYCH: Normal mood, normal affect. SKIN: Warm, Dry, normal turgor, no rashes or lesions noted. Course - Re-evaluation Re-evalutation: 04/26/19 11:21 Patient was given a banana bag IV fluids as a bolus. In route by EMS she had received Zofran. The patient was given additional Zofran for nausea and vomiting after arrival. The patient was also given Ativan for any withdrawal symptoms and was given IV Pepcid and Protonix for gastritis. 04/26/19 17:12 Patient had adequate relief after medications. She had no further vomiting. She was given additional Ativan and was sleeping thereafter with stable vital signs. The patient was given viscous lidocaine and milk of magnesia for gastritis with further improvement. She was given Carafate by mouth. The patient was given additional 2 L normal saline with some replacement potassium. The patient tolerated p.o. fluids and felt stable for discharge. She declined wanting to go to and stated she would follow-up with local practitioner. - Vital Signs Vital signs: Temp Pulse Resp BP Pulse Ox 98.4 F 28 H 127/68 H 98 04/26/19 10:28 04/26/19 16:02 04/26/19 16:02 04/26/19 16:02 - Laboratory Result Diagrams: 04/26/19 10:21 04/26/19 10:21 Laboratory results interpreted by me: 04/26/19 04/26/19 04/26/19 10:21 10:21 11:02 WBC 25.0 H Abs Neuts (Manual) 20.3 H Abs Basophils (Manual) 0.3 H Potassium 3.1 L Chloride 88 L Anion Gap 25 H Glucose 180 H Total Protein 9.0 H Albumin 5.3 H Urine Protein 100 H Urine Glucose (UA) 50 H Urine Ketones TRACE H Urine Blood SMALL H - EKG Interpretation by Me EKG shows normal: Sinus rhythm Rate: Tachycardia Additional EKG results interpreted by me: 04/26/19 11:24 EKG is interpreted by me showed sinus tachycardia heart rate of 109. There is no gross evidence for acute [place] or ischemia noted. No other significant abnormality appreciated. Discharge - Discharge Clinical Impression: Alcohol abuse Alcohol withdrawal Qualifiers: Complication of substance-induced condition: with unspecified complication Qualified Code(s): F10.239 - Alcohol dependence with withdrawal, unspecified Vomiting Qualifiers: Vomiting type: unspecified Vomiting Intractability: non-intractable Nausea presence: with nausea Qualified Code(s): R11.2 - Nausea with vomiting, unspe cified Gastritis Qualifiers: Gastritis type: alcoholic Chronicity: acute Gastritis bleeding: presence of bleeding unspecified Qualified Code(s): K29.20 - Alcoholic gastritis without bleeding Condition: Stable Disposition: HOME, SELF-CARE Instructions: Antinausea Medication ([facility]), Intravenous (IV) Fluids ([facility]), Vomiting ([facility]), Alcohol Withdrawl ([facility]), Gastritis ([facility]), Family Physicians / Practices Additional Instructions: Evans diet. Drink plenty of fluids. Prescriptions: Chlordiazepoxide HCl [Librium 25 mg Capsule] 1 cap PO Q8HP PRN #30 capsule PRN Reason: Ondansetron [Zofran Odt 4 mg Tablet] 1 tab PO Q8HP PRN #15 tab.rapdis PRN Reason: For Nausea/Vomiting Omeprazole 40 mg PO DAILY #30 capsule.dr Forms: Return to Work
[2019-04-26 11:21] LABS: APPEARANCE,URINE SLIGHTLY-CLOUDY; BILIRUBIN,URINE NEGATIVE (NEGATIVE); COLOR,URINE YELLOW; GLUCOSE, URINE 50 mg/dL (NEGATIVE); KETONES,URINE TRACE mg/dL (NEGATIVE); LEUKOCYTE ESTERASE,URINE NEGATIVE (NEGATIVE); NITRITE,URINE NEGATIVE (NEGATIVE); PROTEIN,URINE 100 mg/dL (NEGATIVE); URINE SPECIFIC GRAVITY 1.024; UROBILINOGEN,URINE NEGATIVE mg/dL (<2.0)
[2019-04-26 11:35] LABS: URINE AMPHETAMINES SCREEN NEGATIVE; URINE BARBITURATES SCREEN NEGATIVE; URINE BENZODIAZEPINES SCREEN UNCONFIRMED POSITIVE; URINE COCAINE SCREEN NEGATIVE; URINE MARIJUANA (THC) SCREEN NEGATIVE; URINE METHADONE SCREEN NEGATIVE; URINE PHENCYCLIDINE SCREEN NEGATIVE
[2019-04-26] MEDS ORDERED: LIDOCAINE 2% VISCOUS SOLN 20 ML UDCUP PO ONE (12:38)
[2019-04-26] MEDS ORDERED: MAG HYDROX/AL HYDROX/SIMETH SUSP 30 ML UDCUP PO ONE (12:38)
[2019-04-26] MEDS ORDERED: POTASSI CL 20 MEQ/NS 1L 1,000 ML IV ONE ×2 (12:38→12:46)
[2019-04-26] MEDS ORDERED: METOCLOPRAMIDE HCL INJ/PF 10 MG/2 ML SDV IV ONE (12:45)
--- NOTE | 2019-04-26 12:58 | RADIOLOGY REPORT (SQ) ---
EXAM DESCRIPTION: ACUTE ABDOMEN SERIES COMPLETED DATE/TIME: 04/26/2019 12:38 pm REASON FOR STUDY: abd pain, vomiting COMPARISON: None. NUMBER OF VIEWS: Three views. TECHNIQUE: Frontal chest, supine abdomen and upright/decubitus abdomen radiographic images acquired. LIMITATIONS: None. FINDINGS: CHEST: Lungs clear of infiltrates. FREE AIR: None. No abnormal gas collections. BOWEL GAS PATTERN: Nonobstructive pattern. No dilated loops or air fluid levels. CALCIFICATIONS: No suspicious calcifications. HARDWARE: Bilateral tubal ligation clips in the pelvis. SOFT TISSUES: No gross mass or suggestion of organomegaly. BONES: No acute fracture. No worrisome bone lesions. OTHER: No other significant finding. IMPRESSION: 1. No acute pulmonary findings. 2. NO RADIOGRAPHIC EVIDENCE FOR ACUTE ABDOMINAL DISEASE. TECHNICAL DOCUMENTATION: JOB ID: [id number]- All Rights Reserved Reading location - IP/workstation name: [email or web address]
--- NOTE | 2019-04-26 14:54 | EKG REPORT ---
SEVERITY:- OTHERWISE NORMAL ECG - SINUS TACHYCARDIA BORDERLINE LEFT AXIS DEVIATION : Confirmed by: Jessica Elliott 26-Apr-2019 14:54:18
[2019-04-26] MEDS ORDERED: NYSTATIN/DEXAMETH/DIPHEN SUSP 120 ML PO ONE (16:47)
[2019-04-26] MEDS ORDERED: SUCRALFATE 1 GM TABLET PO ONE (16:47)
[2019-04-26] MEDS ORDERED: ONDANSETRON 4 MG TAB.RAPDIS PO ONE (17:08)
[2019-04-26 17:44] VITALS: BP 126/70
== END 2019-04-26 17:45 | disposition home or self-care (01) ==
LOC: ER 09:56
DX: K29.20 Alcoholic gastritis without bleeding (principal); F10.239 Alcohol dependence with withdrawal, unspecified; K92.0 Hematemesis; R10.84 Generalized abdominal pain; I10 Essential (primary) hypertension; Z88.5 Allergy status to narcotic agent; Z88.0 Allergy status to penicillin
CPT/HCPCS: 93005; 36415; 80307 ×2; 83690; 83735; 85025; 85610; 81025; 80053; 81001; 74022; 93010; S0119; J3490 ×3; J3475; J2765; J2060; J3480 ×2; S0164; J3411; J2405; J7030; S0028; 96365; 96366; 96375; 96376; 99285

== ENCOUNTER 2019-05-25 22:07 | Emergency (ER) | payer OTHER ==
[2019-05-26 00:07] LABS: ABSOLUTE BASOPHILS # (AUTO) 0.1 10^3/uL (0.0-0.2); ABSOLUTE LYMPHOCYTES (AUTO) 4.3 10^3/uL (0.5-4.7); ABSOLUTE MONOCYTES (AUTO) 0.6 10^3/uL (0.1-1.4); BASOPHILS % (AUTO) 0.8 % (0-2); EOSINOPHILS % (AUTO) 0.4 % (0-6); HEMATOCRIT 42.3 % (36.0-47.0); HEMOGLOBIN 14.6 g/dL (12.0-15.5); LYMPHOCYTES % (AUTO) 38.9 % (13-45); MEAN CORPUSCULAR HEMOGLOBIN 32.4 pg (27.0-33.4); MEAN CORPUSCULAR HGB CONC 34.4 g/dL (32.0-36.0); MEAN CORPUSCULAR VOLUME 94 fl (80-97); MONOCYTES % (AUTO) 5.8 % (3-13); PLATELET COUNT 260 10^3/uL (150-450); RED CELL DISTRIBUTION WIDTH 14.5 % (11.5-14.0); SEGMENTED NEUTROPHILS % (AUTO) 54.1 % (42-78); TOTAL CELLS COUNTED % (AUTO) 100 %; WHITE BLOOD COUNT 11.1 10^3/uL (4.0-10.5)
[2019-05-26 00:21] LABS: ALANINE AMINOTRANSFERASE 17 U/L (9-52); ALBUMIN 4.8 g/dL (3.5-5.0); ALKALINE PHOSPHATASE 65 U/L (38-126); ANION GAP 15 (5-19); ASPARTATE AMINO TRANSFERASE 25 U/L (14-36); BILIRUBIN,DIRECT 0.2 mg/dL (0.0-0.4); BILIRUBIN,TOTAL 0.8 mg/dL (0.2-1.3); BLOOD UREA NITROGEN 14 mg/dL (7-20); CALCIUM 8.9 mg/dL (8.4-10.2); CARBON DIOXIDE 24 mmol/L (22-30); CHLORIDE 98 mmol/L (98-107); GLUCOSE 121 mg/dL (75-110); POTASSIUM 4.2 mmol/L (3.6-5.0); TOTAL PROTEIN 8.2 g/dL (6.3-8.2)
[2019-05-26 00:22] LABS: ACETAMINOPHEN < 10 ug/mL (10-30); SALICYLATE < 1.0 mg/dL (2.0-20.0)
[2019-05-26 00:37] LABS: ALCOHOL 339 mg/dL (NONE DETECTED)
[2019-05-26] MEDS ORDERED: NORMAL SALINE 1000 ML 1,000 ML IV ONE (00:55)
[2019-05-26] MEDS ORDERED: THIAMINE HCL 100 MG, FOLIC ACID 1 MG in NORMAL SALINE 250 ML IV ONE (00:55)
[2019-05-26] MEDS ORDERED: THIAMINE HCL INJ 200 MG/2 ML VIAL ONE (01:59)
[2019-05-26] MEDS ORDERED: FOLIC ACID INJ 5 MG/1 ML 10 ML VIAL ONE (02:00)
--- NOTE | 2019-05-26 02:17 | ER Document Report ---
ED General - General TRAVEL OUTSIDE OF THE [place].S. IN LAST 30 DAYS: No <KE DUPONT - Last Filed: 05/26/19 03:37> <AMAURY CHAUDHARY - Last Filed: 05/26/19 10:35> <CAROLINA PORTER - Last Filed: 05/26/19 11:11> - General Chief Complaint: ETOH Abuse Stated Complaint: ETOH, DEPRESSION, ANXIETY Time Seen by Provider: 05/26/19 00:54 Primary Care Provider: [facility] [Outside] - Follow up as needed - [facility] Notes: Patient is a 44-year-old female with a long history of alcohol abuse who comes in for evaluation and possible detox. The patient was recently admitted to the hospital, discharge and was sober for short period of time. She started drinking again. It started with beer, she then started drinking at least a pint of vodka daily. She went to [place], they refused admission based on her level of intoxication. The patient admits to significant depression and increased stress. She states that her relationship with her is difficult at this time, she feels significant pressure in regards to the money she brings in. She states her job is stressful as well. She denies any suicidal ideation. No homicidal ideation. No visual or auditory hallucination. States she is taking her regular medications as prescribed. (KE DUPONT) - Related Data Allergies/Adverse Reactions: butalbital [From Fioricet] Allergy (Verified 03/12/19 23:23) Penicillins Allergy (Verified 03/12/19 23:23) Past Medical History - General Information source: Patient - Social History Smoking Status: Former Smoker Frequency of alcohol use: Heavy Drug Abuse: None Family History: Reviewed & Not Pertinent, Other - Father had renal carcinoma, mom has history of CHF Patient has suicidal ideation: No Patient has homicidal ideation: No - Past Medical History Cardiac Medical History: Reports: Hx Hypertension Denies: Hx Atrial Fibrillation, Hx Congestive Heart Failure, Hx Coronary Artery Disease, Hx DVT, Hx Heart Attack, Hx Hypercholesterolemia, Hx Pulmonary Embolism Pulmonary Medical History: Denies: Hx Asthma, Hx COPD, Hx Sleep Apnea Neurological Medical History: Denies: Hx Seizures Endocrine Medical History: Denies: Hx Diabetes Mellitus Type 1, Hx Diabetes Mellitus Type 2, Hx Hyperthyroidism, Hx Hypothyroidism Renal/ Medical History: Denies: Hx Peritoneal Dialysis GI Medical History: Reports: Hx Gastroesophageal Reflux Disease, Hx Ulcer - Peptic ulcer disease. Denies: Hx Cirrhosis, Hx Hepatitis Musculoskeletal Medical History: Denies Hx Arthritis Skin Medical History: Reports Hx Psoriasis Psychiatric Medical History: Reports: Hx Anxiety - Sees Dr. Ascencio and takes Lamictal, Xanax, Seroquel, and Vistaril, Hx Depression Infectious Medical History: Denies: Hx Hepatitis Past Surgical History: Reports: Hx Abdominal Surgery - Tummy Tuck, Hx Appendectomy, Hx Breast Surgery - Augmentation, Hx Section - x1, Hx Orthopedic Surgery - Left arm x2, Hx Tubal Ligation - Immunizations Hx Diphtheria, Pertussis, Tetanus Vaccination: Yes <KE DUPONT - Last Filed: 05/26/19 03:37> Review of Systems - Review of Systems Constitutional: No symptoms reported EENT: No symptoms reported Cardiovascular: No symptoms reported Respiratory: No symptoms reported Gastrointestinal: No symptoms reported Genitourinary: No symptoms reported Musculoskeletal: No symptoms reported Skin: No symptoms reported Neurological/Psychological: See HPI <KE DUPONT - Last Filed: 05/26/19 03:37> Physical Exam <KE DUPONT - Last Filed: 05/26/19 03:37> - Vital signs Vitals: Temp Pulse Resp BP Pulse Ox 98.6 F 95 20 102/76 95 05/25/19 22:13 05/25/19 22:13 05/25/19 22:13 05/25/19 22:13 05/25/19 22:13 - Notes Notes: This is a 44-year-old female, disheveled, smells of alcohol, but in no acute distress. She is pleasant cooperative with examiner, clearly intoxicated. Vital signs reviewed, please refer to chart. Head is normocephalic, atraumatic. Pupils equal round, reactive to light. Neck is supple without meningismus. Heart is regular rate and rhythm. Lungs are clear to auscultation bilaterally. Abdomen is soft, nontender, normoactive bowel sounds throughout. Extremities without cyanosis, clubbing. Posterior calves are nontender. Peripheral pulses are equal. Skin is warm and dry. She has extensive psoriatic changes to her scalp and face without signs of secondary infection. Patient is awake, alert, neurological exam is nonfocal. (FRIES,LUNDYN M) Course - Laboratory Result Diagrams: 05/25/19 23:50 05/25/19 23:50 <KE DUPONT - Last Filed: 05/26/19 03:37> - Laboratory Result Diagrams: 05/25/19 23:50 05/25/19 23:50 <AMAURY CHAUDHARY - Last Filed: 05/26/19 10:35> - Laboratory Result Diagrams: 05/25/19 23:50 05/25/19 23:50 <CAROLINA PORTER - Last Filed: 05/26/19 11:11> - Re-evaluation Re-evalutation: 05/26/19 03:37 Patient presents emergency department for evaluation of alcohol intoxication, possible detox, as well as depression. She is not actively suicidal. Unfortunately, however, she is too intoxicated for [facility] facility at this time. I am unsure as to the criteria for this. I am unsure as to whether or not she q ualifies for treatment anywhere else. Certainly a psych evaluation would be appropriate. Patient does have some white blood cells in her urine. She does not really have any urinary symptoms. I did again send this over for culture. Otherwise, with the exception of her alcohol intoxication, laboratory investigations are largely unremarkable. She is given IV fluids. She is given IV thiamine and folate. A diet is ordered. Will place consult order. Acetaminophen and salicylate levels are ordered but pending at this time. I do not have any suspicion that they will be high, as the patient is not suicidal. Patient, with the exception of that her level of alcohol intoxication, is medically cleared for psychiatric evaluation. 05/26/19 03:40 (KE DUPONT) - Vital Signs Vital signs: Temp Pulse Resp BP Pulse Ox 98.7 F 86 14 116/77 93 05/26/19 08:19 05/26/19 08:19 05/26/19 08:19 05/26/19 08:19 05/26/19 08:19 - Laboratory Laboratory results interpreted by me: 05/25/19 05/25/19 05/26/19 23:50 23:50 02:40 WBC 11.1 H RDW 14.5 H Glucose 121 H Urine Blood SMALL H Ur Leukocyte Esterase SMALL H Salicylates < 1.0 L Acetaminophen < 10 L Serum Alcohol 339 H* 05/26/19 05:30 WBC RDW Glucose Urine Blood Ur Leukocyte Esterase Salicylates < 1.0 L Acetaminophen < 10 L Serum Alcohol - EKG Interpretation by Me Additional EKG results interpreted by me: 05/26/19 02:26 Sinus mechanism with a rate of 78 bpm. Normal axis. IVCD. No acute ST changes concerning for ischemia or infarction. No significant change compared to prior study. (KE DUPONT) Discharge <KE DUPONT - Last Filed: 05/26/19 03:37> <AMAURY CHAUDHARY - Last Filed: 05/26/19 10:35> <CAROLINA PORTER - Last Filed: 05/26/19 11:11> - Discharge Clinical Impression: Alcohol abuse Alcohol intoxication Qualifiers: Complication of substance-induced condition: uncomplicated Qualified Code(s): F10.920 - Alcohol use, unspecified with intoxication, uncomplicated Condition: Stable Disposition: HOME, SELF-CARE Additional Instructions: You have been evaluated by both medical and behavioral health teams and have be en deemed appropriate for discharge. You have been provided local resource list including detox facilities, outpatient providers and mobile crisis contact information. ACUTE ALCOHOL INTOXICATION and ALCOHOL ABUSE: Your evaluation revealed very high levels of alcohol. You can from drinking a large amount of alcohol rapidly! Further, there's the risk of falls, traffic accidents, and fights. A high portion (about 50 percent) of the serious injuries seen in hospital emergency rooms are caused by alcohol. Alcohol overdosage is usually due to an underlying emotional or psychiatric problem. You may benefit from counselling. If "binge" drinking is an ongoing problem for you, or if you drink ANY AMOUNT of alcohol EVERY day, you most likely have a tendency to alcoholism. You should avoid alcohol totally. We can refer you for treatment. Persons with alcohol problems are often also prone to other addictions -- you should discuss any use of medications or drugs with the doctor. You should be watched at home for the next several hours by someone who has not been drinking. Get extra fluids for the next 24 hours. Call the doctor if there is repeated vomiting, increasing headache, decreasing level of alertness, or any other worsening. CHRONIC ALCOHOLISM and ALCOHOL ABUSE: Your evaluation reveals evidence of chronic alcoholism, an addiction to alcohol. The tendency to alcoholism may be inherited. Chronic use of alcohol weakens muscles, causes fatty deposits in the liver, damages the stomach, makes you more prone to infections, and can cause defects in unborn children. In the long run, brain atrophy and cirrhosis of the liver result. You are also at greater risk for certain types of cancer, such as cancer of the mouth, throat, stomach, and liver. Counselling services are available to help you. In-hospital treatment programs often help. Support groups such as Alcoholics Anonymous can be very useful in beating this addiction. Your physician can make a referral for you. As alcoholics often are prone to other addictions, you should discuss your use of any other medications with the doctor. ALCOHOL WITHDRAWAL: Your symptoms are caused by alcohol withdrawal. After a period of frequent drinking, the brain and body are changed by the alcohol. When you quit or reduce your drinking, the nervous system becomes unstable. Withdrawal symptoms can start a few hours after your last drink, but sometimes don't begin until a couple of days later. Symptoms can include shakiness, sweating, insomnia, nausea, vomiting, fearfulness, hallucinations, and seizures. In addition to the acute effects of alcohol withdrawal, we often have to deal with the medical effects of alcoholism. These problems often include dehydration, stomach irritation, intestinal bleeding, low blood sugar, liver disease, and pancreas inflammation. Treatment for alcohol withdrawal includes mild sedatives, vitamins, and fluids. You need to be with someone who can help if symptoms become severe. Many patients can withdraw at home. Admission to the hospital or a detox facility may be necessary if withdrawal symptoms are severe and uncontrollable. Abstaining from alcohol is the only effective long-term treatment. If you start drinking again, you will not be able to control yourself after the first drink. Treatment programs are available. In addition, many alcoholics benefit from Alcoholics Anonymous or other support groups available through your counselor or taoism flake cutter operator. AL-ANON and ALA-TEEN are support groups for friends and family members of an alcoholic. Go to the emergency room if you develop persistent vomiting, severe abdominal pain, fever, shortness of breath, hallucinations, uncontrollable tremors, or seizures. FOLLOW-UP CARE: If you have been referred to a physician for follow-up care, call the physicians office for an appointment as you were instructed or within the next two days. If you experience worsening or a significant change in your symptoms, notify the physician immediately or return to the Emergency Department at any time for re-evaluation. Benzodiazepines You have been given a benzodiazepine medication. Examples of this type of medicine include Valium, Xanax, Librium, Ativan, and Halcion. Benzodiazepines have many uses. Medications of this type are used for insomnia, anxiety, muscle spasms, seizures, and drug and alcohol withdrawal. You may become very drowsy when you first take the medication. You should not drive or operate machinery while under its effects. Do not combine the medication with alcohol, or with any other medication without talking to your doctor. Do not take if without specific instruction from your general dentist. Some benzodiazepines may have harmful interactions with oral antifungal medicines such as ketoconazole, itraconazole, and nefazodone. If you are taking an antifungal medicine, discuss this with your doctor before taking benzodiazepines. Prescriptions: Chlordiazepoxide HCl [Librium 25 mg Capsule] 1 - 2 cap PO TID #15 capsule Referrals: [facility] [Outside] - Follow up as needed
[2019-05-26 03:10] LABS: URINE AMPHETAMINES SCREEN NEGATIVE; URINE BARBITURATES SCREEN NEGATIVE; URINE BENZODIAZEPINES SCREEN UNCONFIRMED POSITIVE; URINE COCAINE SCREEN NEGATIVE; URINE MARIJUANA (THC) SCREEN NEGATIVE; URINE METHADONE SCREEN NEGATIVE; URINE PHENCYCLIDINE SCREEN NEGATIVE
[2019-05-26 03:35] LABS: APPEARANCE,URINE CLEAR; BILIRUBIN,URINE NEGATIVE (NEGATIVE); COLOR,URINE STRAW; GLUCOSE, URINE NEGATIVE (NEGATIVE); KETONES,URINE NEGATIVE (NEGATIVE); LEUKOCYTE ESTERASE,URINE SMALL (NEGATIVE); NITRITE,URINE NEGATIVE (NEGATIVE); PROTEIN,URINE NEGATIVE (NEGATIVE); URINE SPECIFIC GRAVITY 1.005; UROBILINOGEN,URINE NEGATIVE mg/dL (<2.0)
[2019-05-26 06:19] LABS: ACETAMINOPHEN < 10 ug/mL (10-30); SALICYLATE < 1.0 mg/dL (2.0-20.0)
--- NOTE | 2019-05-26 09:59 | ER Document Report ---
Doctor's Note Notes: 05/26/19 09:58 Rounds: Chart reviewed and patient interviewed. Patient says that she has a substance abuse problem, in particular alcohol. Presenting alcohol when patient came in yesterday was 339. Patient was requesting detox. They would not accept her with that high and alcohol level. Patient denies any suicidal thoughts. Labs so drug screen positive for benzos. Vital signs are all normal. Patient appears to be medically stable for transfer or discharge. Moose Roche MD
[2019-05-26 12:23] VITALS: BP 117/73
--- NOTE | 2019-05-26 18:17 | EKG REPORT ---
SEVERITY:- ABNORMAL ECG - SINUS RHYTHM NONSPECIFIC INTRAVENTRICULAR CONDUCTION DELAY : Confirmed by: Kay Bauman MD 26-May-2019 18:17:12
== END 2019-05-26 11:57 | disposition home or self-care (01) ==
LOC: ER 22:07
DX: F10.120 Alcohol abuse with intoxication, uncomplicated (principal); Y90.8 Blood alcohol level of 240 mg/100 ml or more; F32.9 Major depressive disorder, single episode, unspecified; I10 Essential (primary) hypertension; Z63.0 Problems in relationship with spouse or partner; Z79.899 Other long term (current) drug therapy; Z88.5 Allergy status to narcotic agent; Z88.0 Allergy status to penicillin; Z87.891 Personal history of nicotine dependence
CPT/HCPCS: 93005; 99284; 96365; 36415; 87086; 80307 ×4; 84703; 85025; 87088; 80053; 81001; 87186; 93010; J3490; J3411; J7030; J7050

== ENCOUNTER 2019-10-09 19:16 | Emergency (ER) | payer OTHER ==
[2019-10-09] MEDS ORDERED: METOCLOPRAMIDE HCL INJ/PF 10 MG/2 ML SDV IV ONE (20:47)
[2019-10-09] MEDS ORDERED: NORMAL SALINE 1000 ML 1,000 ML IV ONE (20:47)
--- NOTE | 2019-10-09 20:48 | ER Document Report ---
ED Medical Screen (RME) - General Chief Complaint: ETOH Abuse Stated Complaint: VOMITING,NOT EATING Time Seen by Provider: 10/09/19 20:45 Mode of Arrival: Medic Information source: Patient Notes: 44-year-old female presents emergency department via EMS for complaints of alcohol abuse. Reports she has been on a 8-day binge. Reports she drank 1/5 of vodka today. Patient is actively vomiting. Complains of abdominal pain. I have greeted and performed a rapid initial assessment of this patient. A comprehensive ED assessment and evaluation of the patient, analysis of test results and completion of the medical decision making process will be conducted by additional ED providers. Dictation of this chart was performed using voice recognition software; therefore, there may be some unintended grammatical errors. TRAVEL OUTSIDE OF THE [place] IN LAST 30 DAYS: No - Related Data Allergies/Adverse Reactions: butalbital [From Fioricet] Allergy (Verified 10/09/19 20:37) Penicillins Allergy (Verified 10/09/19 20:37) Home Medications: Lamictal, propanolol, doxipin Past Medical History - Social History Frequency of alcohol use: 5th of vodka/day Drug Abuse: None Family history: CAD - Past Medical History Cardiac Medical History: Reports: Hx Hypertension Denies: Hx Atrial Fibrillation, Hx Congestive Heart Failure, Hx Coronary Artery Disease, Hx DVT, Hx Heart Attack, Hx Hypercholesterolemia, Hx Pulmonary Embolism Pulmonary Medical History: Denies: Hx Asthma, Hx COPD, Hx Sleep Apnea Neurological Medical History: Denies: Hx Seizures Endocrine Medical History: Denies: Hx Diabetes Mellitus Type 1, Hx Diabetes Mellitus Type 2, Hx Hyperthyroidism, Hx Hypothyroidism Renal/ Medical History: Denies: Hx Peritoneal Dialysis GI Medical History: Reports: Hx Gastroesophageal Reflux Disease, Hx Ulcer - Peptic ulcer disease. Denies: Hx Cirrhosis, Hx Hepatitis Musculoskeltal Medical History: Denies Hx Arthritis Skin Medical History: Reports Hx Psoriasis Psychiatric Medical History: Reports: Hx Anxiety - Sees Dr. Ascencio and takes Lamictal, Xanax, Seroquel, and Vistaril, Hx Depression Infectious Medical History: Denies: Hx Hepatitis Past Surgical History: Reports: Hx Abdominal Surgery - Tummy Tuck, Hx Appendectomy, Hx Breast Surgery - Augmentation, Hx Section - x1, Hx Or thopedic Surgery - Left arm x2, Hx Tubal Ligation - Immunizations Hx Diphtheria, Pertussis, Tetanus Vaccination: Yes Physical Exam - Vital signs Vitals: Temp Pulse Resp BP Pulse Ox 98.1 F 112 H 18 146/98 H 95 10/09/19 19:59 10/09/19 19:59 10/09/19 19:59 10/09/19 19:59 10/09/19 19:59 Course - Vital Signs Vital signs: Temp Pulse Resp BP Pulse Ox 98.1 F 112 H 18 146/98 H 95 10/09/19 20:38 10/09/19 20:38 10/09/19 20:38 10/09/19 20:38 10/09/19 20:38
[2019-10-09 21:13] LABS: ABSOLUTE BASOPHILS # (AUTO) 0.1 10^3/uL (0.0-0.2); ABSOLUTE LYMPHOCYTES (AUTO) 2.2 10^3/uL (0.5-4.7); ABSOLUTE MONOCYTES (AUTO) 0.5 10^3/uL (0.1-1.4); ABSOLUTE NEUT (AUTO) 10.7 10^3/uL (1.7-8.2); BASOPHILS % (AUTO) 0.4 % (0-2); EOSINOPHILS % (AUTO) 0.1 % (0-6); HEMATOCRIT 45.1 % (36.0-47.0); HEMOGLOBIN 15.6 g/dL (12.0-15.5); LYMPHOCYTES % (AUTO) 16.6 % (13-45); MEAN CORPUSCULAR HEMOGLOBIN 33.4 pg (27.0-33.4); MEAN CORPUSCULAR HGB CONC 34.7 g/dL (32.0-36.0); MEAN CORPUSCULAR VOLUME 96 fl (80-97); MONOCYTES % (AUTO) 3.5 % (3-13); PLATELET COUNT 220 10^3/uL (150-450); RED BLOOD COUNT 4.69 10^6/uL (3.72-5.28); RED CELL DISTRIBUTION WIDTH 15.5 % (11.5-14.0); SEGMENTED NEUTROPHILS % (AUTO) 79.4 % (42-78); TOTAL CELLS COUNTED % (AUTO) 100 %; WHITE BLOOD COUNT 13.5 10^3/uL (4.0-10.5)
[2019-10-09 21:28] LABS: ALBUMIN 5.3 g/dL (3.5-5.0); ALCOHOL 116 mg/dL (NONE DETECTED); ALKALINE PHOSPHATASE 62 U/L (38-126); ASPARTATE AMINO TRANSFERASE 50 U/L (14-36); BILIRUBIN,DIRECT 0.2 mg/dL (0.0-0.4); BILIRUBIN,TOTAL 0.7 mg/dL (0.2-1.3); BLOOD UREA NITROGEN 14 mg/dL (7-20); CALCIUM 9.1 mg/dL (8.4-10.2); CARBON DIOXIDE 19 mmol/L (22-30); GLUCOSE 148 mg/dL (75-110); POTASSIUM 4.5 mmol/L (3.6-5.0); TOTAL PROTEIN 8.8 g/dL (6.3-8.2)
[2019-10-09 21:29] LABS: ACETAMINOPHEN < 10 ug/mL (10-30); SALICYLATE < 1.0 mg/dL (2.0-20.0)
[2019-10-09 21:33] LABS: ANION GAP 23 (5-19); CHLORIDE 95 mmol/L (98-107)
[2019-10-09 21:53] LABS: APPEARANCE,URINE SLIGHTLY-CLOUDY; BILIRUBIN,URINE NEGATIVE (NEGATIVE); COLOR,URINE YELLOW; GLUCOSE, URINE NEGATIVE (NEGATIVE); KETONES,URINE 80 mg/dL (NEGATIVE); LEUKOCYTE ESTERASE,URINE NEGATIVE (NEGATIVE); NITRITE,URINE NEGATIVE (NEGATIVE); PROTEIN,URINE >=500 mg/dL (NEGATIVE); UROBILINOGEN,URINE NEGATIVE mg/dL (<2.0)
[2019-10-09 22:05] LABS: URINE AMPHETAMINES SCREEN NEGATIVE; URINE BARBITURATES SCREEN NEGATIVE; URINE BENZODIAZEPINES SCREEN NEGATIVE; URINE COCAINE SCREEN NEGATIVE; URINE MARIJUANA (THC) SCREEN NEGATIVE; URINE METHADONE SCREEN NEGATIVE; URINE PHENCYCLIDINE SCREEN NEGATIVE
--- NOTE | 2019-10-09 22:22 | EKG REPORT ---
SEVERITY:- ABNORMAL ECG - SINUS RHYTHM NONSPECIFIC T ABNORMALITIES, DIFFUSE LEADS BORDERLINE PROLONGED QT INTERVAL : Confirmed by: Panda Gooden MD 09-Oct-2019 22:21:33
[2019-10-09] MEDS ORDERED: METOCLOPRAMIDE HCL INJ/PF 10 MG/2 ML SDV ONE (22:28)
--- NOTE | 2019-10-10 00:12 | ER Document Report ---
ED General - General Chief Complaint: ETOH Abuse Stated Complaint: VOMITING,NOT EATING Time Seen by Provider: 10/09/19 20:45 Primary Care Provider: ELIA VENEGAS PA [Primary Care Provider] - Follow up as needed Mode of Arrival: Medic TRAVEL OUTSIDE OF THE [place] IN LAST 30 DAYS: No - Related Data Allergies/Adverse Reactions: butalbital [From Fioricet] Allergy (Verified 10/09/19 20:37) Penicillins Allergy (Verified 10/09/19 20:37) Home Medications: Lamictal, propanolol, doxipin Past Medical History - General Information source: Patient - Social History Smoking Status: Former Smoker Frequency of alcohol use: 5th of vodka/day Drug Abuse: None Family History: Reviewed & Not Pertinent, Other - Father had renal carcinoma, mom has history of CHF Patient has suicidal ideation: No Patient has homicidal ideation: No - Past Medical History Cardiac Medical History: Reports: Hx Hypertension Denies: Hx Atrial Fibrillation, Hx Congestive Heart Failure, Hx Coronary Artery Disease, Hx DVT, Hx Heart Attack, Hx Hypercholesterolemia, Hx Pulmonary Embolism Pulmonary Medical History: Denies: Hx Asthma, Hx COPD, Hx Sleep Apnea Neurological Medical History: Denies: Hx Seizures Endocrine Medical History: Denies: Hx Diabetes Mellitus Type 1, Hx Diabetes Mellitus Type 2, Hx Hyperthyroidism, Hx Hypothyroidism Renal/ Medical History: Denies: Hx Peritoneal Dialysis GI Medical History: Reports: Hx Gastroesophageal Reflux Disease, Hx Ulcer - Peptic ulcer disease. Denies: Hx Cirrhosis, Hx Hepatitis Musculoskeletal Medical History: Denies Hx Arthritis Skin Medical History: Reports Hx Psoriasis Psychiatric Medical History: Reports: Hx Anxiety - Sees Dr. Ascencio and takes Lamictal, Xanax, Seroquel, and Vistaril, Hx Depression Infectious Medical History: Denies: Hx Hepatitis Past Surgical History: Reports: Hx Abdominal Surgery - Tummy Tuck, Hx Appendectomy, Hx Breast Surgery - Augmentation, Hx Section - x1, Hx Orthopedic Surgery - Left arm x2, Hx Tubal Ligation - Immunizations Hx Diphtheria, Pertussis, Tetanus Vaccination: Yes Physical Exam - Vital signs Vitals: Temp Pulse Resp BP Pulse Ox 98.1 F 112 H 18 146/98 H 95 10/09/19 19:59 10/09/19 19:59 10/09/19 19:59 10/09/19 19:59 10/09/19 19:59 - Notes Notes: With history of alcohol abuse presents to the emergency department requesting detox. She is been in detox before. Has been drinking for about 8 days now. There is no precipitating factor. The last drink was about 6 hours ago. She has had intermittent nausea and vomiting for the past 2 days associated with some epigastric pain. He denies any chest pain or shortness of breath diarrhea or blood in the stools. Take any other drugs and denies being suicidal or homicidal Past medical history seen for alcohol abuse. Is been here several times in the past for this. She denies any history of hypertension diabetes or heart disease. Social history she does smoke the last menstrual period was 2 to 3 weeks ago Family history is noncontributory Review of systems pertinent positives and negatives in HPI otherwise all the systems were reviewed and acutely negative PHYSICIAN EXAM -vital signs are noted triage note and note from triage reviewed GENERAL: Well-appearing, well-nourished and in ___no acute distress___ HEAD: Atraumatic, normocephalic. EYES: Pupils equal round and reactive to light, extraocular movements intact, sclera anicteric, conjunctiva are normal. ENT: nares patent, oropharynx clear without exudates. I dry mucous membranes. NECK: supple without lymphadenopathy LUNGS: Breath sounds clear to auscultation bilaterally and equal. No wheezes rales or rhonchi. HEART: Rapid rate and rhythm without murmurs ABDOMEN: Soft, nontender, normoactive bowel sounds. EXTREMITIES: No deformity, no edema. NEUROLOGICAL: Alert and oriented x4. Cranial nerves symmetrical smile and facial expressions. Motor strength is symmetric bilaterally in the upper lower extremities. Sensation intact light touch. She got a very mild tremor. PSYCH: Normal mood, normal affect. SKIN: Warm, Dry, normal turgor, no rashes or lesions noted. BACK-nontender in the midline Differential diagnosis includes dehydration abnormal electrolytes withdrawal hepatitis Course - Re-evaluation Re-evalutation: 10/10/19 03:36 ED patient remained stable she was given Zofran and 1 dose of Ativan is resting more comfortably. She has had no additional episodes of vomiting is been tolerating liquids well and back to reevaluate the patient and she now indicates that she does not really want to go to detox and wants to go home to follow-up with her family doctor as an outpatient. Advised patient she should probably not drive with the Ativan should be given a list of the mental health clinics in town and also advised that she can go to the detox center across the street from the hospital here at any time turned to the ED if she wants to be further evaluated. She will be treated with a short course of Librium she was found to have a mild acidosis probably alcohol ketoacidosis. See fluids and I suspect this is probably resolved I discussed results of laboratory findings and diagnostic test with patient/fa je. The treatment plan was explained and I reviewed the discharge instructions with them. Questions were answered. The patient/family verbalizes understanding Dictation was done using voice recognition software. There may be some grammatical errors which are unintentional - Vital Signs Vital signs: Temp Pulse Resp BP Pulse Ox 98.9 F 75 18 137/81 H 96 10/10/19 01:53 10/10/19 01:53 10/10/19 01:53 10/10/19 01:53 10/10/19 01:53 - Laboratory Result Diagrams: 10/09/19 20:55 10/09/19 20:55 Laboratory results interpreted by me: 10/09/19 10/09/19 10/09/19 20:55 20:55 21:25 WBC 13.5 H Hgb 15.6 H RDW 15.5 H Absolute Neuts (auto) 10.7 H Seg Neutrophils % 79.4 H Sodium 136.9 L Chloride 95 L Carbon Dioxide 19 L Anion Gap 23 H Glucose 148 H AST 50 H Total Protein 8.8 H Albumin 5.3 H Urine Protein >=500 H Urine Ketones 80 H Urine Blood MODERATE H Salicylates < 1.0 L Acetaminophen < 10 L - Diagnostic Test Radiology reviewed: Reports reviewed - EKG Interpretation by Me Additional EKG results interpreted by me: 10/10/19 00:39 EKG read by me shows a normal sinus rhythm with a rate of 83 with a normal axis. QT is prolonged at 0.49 which is old she is got some new nonspecific ST wave changes throughout shift increased from May Discharge - Discharge Clinical Impression: Alcohol abuse, Metabolic acidosis Nausea and vomiting Qualifiers: Vomiting Intractability: non-intractable Disposition: HOME, SELF-CARE Instructions: Antinausea Medication ([facility]), Vomiting ([facility]) Additional Instructions: Alcohol Withdrawal Your symptoms are caused by alcohol withdrawal. After a period of frequent drinking, the brain and body are changed by the alcohol. When you quit or reduce your drinking, the nervous system becomes unstable. Withdrawal symptoms can start a few hours after your last drink, but sometimes don't begin until a couple of days later. Symptoms can include shakiness, sweating, insomnia, nausea, vomiting, fearfulness, hallucinations, and seizures. In addition to the acute effects of alcohol withdrawal, we often have to deal with the medical effects of alcoholism. These problems often include dehydration, stomach irritation, intestinal bleeding, low blood sugar, liver disease, and pancreas inflammation. Treatment for alcohol withdrawal includes mild sedatives, vitamins, and fluids. You need to be with someone who can help if symptoms become severe. Many patients can withdraw at home. Admission to the hospital or a detox facility may be necessary if withdrawal symptoms are severe and uncontrollable. Abstaining from alcohol is the only effective long-term treatment. If you start drinking again, you will not be able to control yourself after the first drink. Treatment programs are available. In addition, many alcoholics benefit from Alcoholics Anonymous or other support groups available through your counselor or sikh early childhood special educator. [employer]-[facility] and A[employer]TE[employer] are support groups for friends and family members of an alcoholic. Go to the emergency room if you develop persistent vomiting, severe abdominal pain, fever, shortness of breath, hallucinations, uncontrollable tremors, or seizures. Please review the discharge instructions, they will tell you about your disease/injury and what you need to return to the ED for Return to the ED if you feel worse or can follow-up with your family doctor Drink plenty of fluids The medication for the shakes may cause drowsiness you should not drive YOU Will be given a list of outpatient mental health clinics for detox The medicines may cause drowsiness. You should not be driving or working Prescriptions: Ondansetron [Zofran Odt 4 mg Tablet] 4 mg PO Q4HP PRN #12 tab.rapdis PRN Reason: Lorazepam [Ativan 1 mg Tablet] 1 mg PO Q4 PRN #12 tab PRN Reason: Forms: Return to Work Referrals: ELIA VENEGAS PA [Primary Care Provider] - Follow up as needed
[2019-10-10] MEDS ORDERED: DEXTROSE 5%-1/2 NORMAL SALINE 1,000 ML IV ONE ×2 (00:35)
[2019-10-10] MEDS ORDERED: THIAMINE HCL 100 MG in NORMAL SALINE 50 ML IV ONE (00:36)
[2019-10-10] MEDS ORDERED: LORAZEPAM INJ 2 MG/1 ML VIAL IV ONE (00:37)
[2019-10-10] MEDS ORDERED: THIAMINE HCL INJ 200 MG/2 ML VIAL ONE (01:15)
--- NOTE | 2019-10-10 01:26 | RADIOLOGY REPORT (SQ) ---
EXAM DESCRIPTION: XR CHEST 1 VIEW COMPLETED DATE/TME: 10/10/2019 00:41 CLINICAL HISTORY: 44 years, Female, Vomiting COMPARISON: 05/18/2016 chest NUMBER OF VIEWS: 1 TECHNIQUE: Portable chest LIMITATIONS: None. FINDINGS: Heart size normal. Lungs clear. No pneumothorax IMPRESSION: Negative chest copyright 2010 [employer]- All Rights Reserved
[2019-10-10] MEDS: MAGNESIUM SULFATE/D5W 1 GM/100 ML RTUPB IV SCH ×2 (01:32→01:43)
[2019-10-10] MEDS ORDERED: LIDOCAINE 2% VISCOUS SOLN 20 ML UDCUP PO ONE (03:03)
[2019-10-10] MEDS ORDERED: MAG HYDROX/AL HYDROX/SIMETH SUSP 30 ML UDCUP PO ONE (03:03)
[2019-10-10 04:32] VITALS: BP 151/86
== END 2019-10-10 04:32 | disposition home or self-care (01) ==
LOC: ER 19:16
DX: F10.10 Alcohol abuse, uncomplicated (principal); R11.2 Nausea with vomiting, unspecified; E87.2 Acidosis; Z87.891 Personal history of nicotine dependence; I10 Essential (primary) hypertension
CPT/HCPCS: 93005; 36415; 80307 ×4; 84703; 85025; 80053; 81001; 71045; 93010; J3490; J2765; J2060; J3475; J3411; J7030; 96361; 96365; 96368; 96375; 99284

== ENCOUNTER 2020-01-13 10:45 | Emergency (ER) | payer OTHER ==
[2020-01-13] MEDS ORDERED: ASPIRIN 81 MG TABLET, CHEWABLE PO ONE (11:01)
--- NOTE | 2020-01-13 11:01 | ER Document Report ---
ED Medical Screen (RME) - General Chief Complaint: Chest Pain Stated Complaint: ALCOHOL WITHDRAWAL Time Seen by Provider: 01/13/20 10:51 Mode of Arrival: Wheelchair Information source: Patient Notes: Presents to ED for complaint of chest pain that started yesterday. She states she has never had pain like this. She states she did just get out of rehab last started drinking again on Thursday has had a half a bottle of vodka this size bottle this morning. She states she has been drinking 1/5 of vodka each day since Thursday. She states she does not smoke or use any drugs. She states the chest pain started yesterday. She states she is short of breath and she was at home. States she has not had any fevers. I have greeted and performed a rapid initial assessment of this patient. A comprehensive ED assessment and evaluation of the patient, analysis of test results and completion of medical decision making process will be conducted by an additional ED providers. TRAVEL OUTSIDE OF THE [place] IN LAST 30 DAYS: No - Related Data Allergies/Adverse Reactions: butalbital [From Fioricet] Allergy (Verified 10/09/19 20:37) Penicillins Allergy (Verified 10/09/19 20:37) Past Medical History - Social History Family history: CAD - Past Medical History Cardiac Medical History: Reports: Hx Hypertension Denies: Hx Atrial Fibrillation, Hx Congestive Heart Failure, Hx Coronary Artery Disease, Hx DVT, Hx Heart Attack, Hx Hypercholesterolemia, Hx Pulmonary Embolism Pulmonary Medical History: Denies: Hx Asthma, Hx COPD, Hx Sleep Apnea Neurological Medical History: Denies: Hx Seizures Endocrine Medical History: Denies: Hx Diabetes Mellitus Type 1, Hx Diabetes Mellitus Type 2, Hx Hyperthyroidism, Hx Hypothyroidism Renal/ Medical History: Denies: Hx Peritoneal Dialysis GI Medical History: Reports: Hx Gastroesophageal Reflux Disease, Hx Ulcer - Peptic ulcer disease. Denies: Hx Cirrhosis, Hx Hepatitis Musculoskeltal Medical History: Denies Hx Arthritis Skin Medical History: Reports Hx Psoriasis Psychiatric Medical History: Reports: Hx Anxiety - Sees Dr. Ascencio and takes Lamictal, Xanax, Seroquel, and Vistaril, Hx Depression Infectious Medical History: Denies: Hx Hepatitis Past Surgical History: Reports: Hx Abdominal Surgery - Tummy Tuck, Hx Appendectomy, Hx Breast Surgery - Augmentation, Hx Section - x1, Hx Orthopedic Surgery - Left arm x2, Hx Tubal Ligation - Immunizations Hx Diphtheria, Pertussis, Tetanus Vaccination: Yes Physical Exam - Vital signs Vitals: Temp Pulse Resp BP Pulse Ox 98.1 F 84 16 133/89 H 97 01/13/20 10:55 01/13/20 10:55 01/13/20 10:55 01/13/20 10:55 01/13/20 10:55 Course - Vital Signs Vital signs: Temp Pulse Resp BP Pulse Ox 98.1 F 84 16 133/89 H 97 01/13/20 10:55 01/13/20 10:55 01/13/20 10:55 01/13/20 10:55 01/13/20 10:55
[2020-01-13] MEDS ORDERED: NORMAL SALINE 1000 ML 1,000 ML IV ONE (11:02)
--- NOTE | 2020-01-13 11:39 | RADIOLOGY REPORT (SQ) ---
EXAM DESCRIPTION: CHEST 2 VIEWS COMPLETED DATE/TIME: 01/13/2020 11:11 am REASON FOR STUDY: Chest pain COMPARISON: Chest films 10/10/2019, 05/18/2016 EXAM PARAMETERS: NUMBER OF VIEWS: two views TECHNIQUE: Digital Frontal and Lateral radiographic views of the chest acquired. RADIATION DOSE: NA LIMITATIONS: none FINDINGS: LUNGS AND PLEURA: No opacities, masses or pneumothorax. No pleural effusion. MEDIASTINUM AND HILAR STRUCTURES: No masses or contour abnormalities. HEART AND VASCULAR STRUCTURES: Heart normal size. No evidence for failure. BONES: No acute findings. HARDWARE: None in the chest. OTHER: No other significant finding. IMPRESSION: NO ACUTE RADIOGRAPHIC FINDING IN THE CHEST. TECHNICAL DOCUMENTATION: JOB ID: [id number] 2010 [employer]- All Rights Reserved Reading location - IP/workstation name: [email or web address]
[2020-01-13 11:50] LABS: ABSOLUTE BASOPHILS # (AUTO) 0.1 10^3/uL (0.0-0.2); ABSOLUTE LYMPHOCYTES (AUTO) 3.3 10^3/uL (0.5-4.7); ABSOLUTE MONOCYTES (AUTO) 0.6 10^3/uL (0.1-1.4); ABSOLUTE NEUT (AUTO) 7.2 10^3/uL (1.7-8.2); BASOPHILS % (AUTO) 0.8 % (0-2); EOSINOPHILS % (AUTO) 0.3 % (0-6); HEMATOCRIT 43.9 % (36.0-47.0); HEMOGLOBIN 15.2 g/dL (12.0-15.5); LYMPHOCYTES % (AUTO) 29.3 % (13-45); MEAN CORPUSCULAR HEMOGLOBIN 32.7 pg (27.0-33.4); MEAN CORPUSCULAR HGB CONC 34.6 g/dL (32.0-36.0); MEAN CORPUSCULAR VOLUME 95 fl (80-97); MONOCYTES % (AUTO) 5.7 % (3-13); PLATELET COUNT 363 10^3/uL (150-450); RED BLOOD COUNT 4.65 10^6/uL (3.72-5.28); RED CELL DISTRIBUTION WIDTH 12.8 % (11.5-14.0); SEGMENTED NEUTROPHILS % (AUTO) 63.9 % (42-78); TOTAL CELLS COUNTED % (AUTO) 100 %; WHITE BLOOD COUNT 11.2 10^3/uL (4.0-10.5)
[2020-01-13 12:11] LABS: ALBUMIN 4.9 g/dL (3.5-5.0); ALCOHOL 176 mg/dL (NONE DETECTED); ALKALINE PHOSPHATASE 112 U/L (38-126); ANION GAP 19 (5-19); ASPARTATE AMINO TRANSFERASE 32 U/L (14-36); BILIRUBIN,TOTAL 0.6 mg/dL (0.2-1.3); BLOOD UREA NITROGEN 12 mg/dL (7-20); CALCIUM 9.3 mg/dL (8.4-10.2); CARBON DIOXIDE 23 mmol/L (22-30); CHLORIDE 97 mmol/L (98-107); CREATINE KINASE 59 U/L (30-135); GLUCOSE 85 mg/dL (75-110)
[2020-01-13 13:29] LABS: APPEARANCE,URINE CLOUDY; BILIRUBIN,URINE NEGATIVE (NEGATIVE); COLOR,URINE AMBER; GLUCOSE, URINE NEGATIVE (NEGATIVE); KETONES,URINE 80 mg/dL (NEGATIVE); PROTEIN,URINE 30 mg/dL (NEGATIVE); URINE SPECIFIC GRAVITY 1.026; UROBILINOGEN,URINE NEGATIVE mg/dL (<2.0)
[2020-01-13 13:46] LABS: URINE AMPHETAMINES SCREEN NEGATIVE; URINE BARBITURATES SCREEN NEGATIVE; URINE BENZODIAZEPINES SCREEN NEGATIVE; URINE COCAINE SCREEN NEGATIVE; URINE MARIJUANA (THC) SCREEN NEGATIVE; URINE METHADONE SCREEN NEGATIVE; URINE PHENCYCLIDINE SCREEN NEGATIVE
--- NOTE | 2020-01-13 14:47 | ER Document Report ---
ED General - General Chief Complaint: Chest Pain Stated Complaint: ALCOHOL WITHDRAWAL Time Seen by Provider: 01/13/20 10:51 Mode of Arrival: Wheelchair TRAVEL OUTSIDE OF THE [place] IN LAST 30 DAYS: No - HPI Notes: Patient is a 44-year-old female with a history of chronic alcoholism, bipolar disorder, who presents to the emergency department for evaluation. She was in [place] for rehab in a 28-day program. She was discharged last week. On Thursday she started drinking again. [place] did not because she was drinking. She states that she started drinking of her anxieties in regards to the coronavirus, and the p ossible "end of the world." She denies any suicidal or homicidal ideation. She denies any visual or auditory elucidation. She states she is interested in quitting drinking. She denies use of any other illicit drugs. She states she has been taking her medications as prescribed. - Related Data Allergies/Adverse Reactions: butalbital [From Fioricet] Allergy (Verified 01/13/20 12:34) Penicillins Allergy (Verified 01/13/20 12:34) Home Medications: Lamictal, propanolol Past Medical History - General Information source: Patient - Social History Smoking Status: Never Smoker Chew tobacco use (# tins/day): No Frequency of alcohol use: Heavy Drug Abuse: None Family History: Reviewed & Not Pertinent, Other - Father had renal carcinoma, mom has history of CHF Patient has suicidal ideation: No Patient has homicidal ideation: No - Past Medical History Cardiac Medical History: Reports: Hx Hypertension Denies: Hx Atrial Fibrillation, Hx Congestive Heart Failure, Hx Coronary Artery Disease, Hx DVT, Hx Heart Attack, Hx Hypercholesterolemia, Hx Pulmonary Embolism Pulmonary Medical History: Denies: Hx Asthma, Hx COPD, Hx Sleep Apnea Neurological Medical History: Denies: Hx Seizures Endocrine Medical History: Denies: Hx Diabetes Mellitus Type 1, Hx Diabetes Mellitus Type 2, Hx Hyperthyroidism, Hx Hypothyroidism Renal/ Medical History: Denies: Hx Peritoneal Dialysis GI Medical History: Reports: Hx Gastroesophageal Reflux Disease, Hx Ulcer - Peptic ulcer disease. Denies: Hx Cirrhosis, Hx Hepatitis Musculoskeletal Medical History: Denies Hx Arthritis Skin Medical History: Reports Hx Psoriasis Psychiatric Medical History: Reports: Hx Anxiety - Sees Dr. Ascencio and takes Lamictal, Xanax, Seroquel, and Vistaril, Hx Bipolar Disorder, Hx Depression Infectious Medical History: Denies: Hx Hepatitis Past Surgical History: Reports: Hx Abdominal Surgery - Tummy Tuck, Hx Appe ndectomy, Hx Breast Surgery - Augmentation, Hx Section - x1, Hx Orthopedic Surgery - Left arm x2, Hx Tubal Ligation - Immunizations Hx Diphtheria, Pertussis, Tetanus Vaccination: Yes Review of Systems - Review of Systems Neurological/Psychological: See HPI -: Yes All other systems reviewed and negative Physical Exam - Vital signs Vitals: Temp Pulse Resp BP Pulse Ox 98.1 F 84 16 133/89 H 97 01/13/20 10:55 01/13/20 10:55 01/13/20 10:55 01/13/20 10:55 01/13/20 10:55 - Notes Notes: Is a 44-year-old female who appears her stated age in no acute distress. She is calm, cooperative, appropriate with examiner. Vital signs reviewed, please refer to chart. Head is normocephalic, atraumatic. Pupils equal round, reactive to light. Neck is supple without meningismus. Heart is regular rate and rhythm. Lungs are clear to auscultation bilaterally. Abdomen is soft, nontender, normoactive bowel sounds throughout. Extremities without cyanosis, clubbing. Posterior calves are nontender. Peripheral pulses are equal. Skin is warm and dry. Patient is awake, alert, neurological exam is nonfocal. Course - Re-evaluation Re-evalutation: 01/13/20 14:46 Patient is a 44-year-old female presents to the emergency department for evaluation. She was worried about alcohol withdrawal symptoms. She had been clean for 28 days. She is only been drinking for the last few. Her blood alcohol is 176 and she is showing no signs of alcohol withdrawal. I do not have concern at this point that the patient will exhibit karla withdrawal symptoms. We talked about this at length. We talked about options in regards to treatment. She states she is not interested in going back to [place] at this time, states that she does not believe that they were helpful. She was given information from [facility]. She does have , which is excepted by them. She states she plans to call the contact number. She did arrive here via taxi service, and enough time is past that she is below the alcohol legal limit. I will discharge her to close follow-up. She is to return to the ED with worsening or new concerning symptoms of any sort. - Vital Signs Vital signs: Temp Pulse Resp BP Pulse Ox 98.1 F 84 15 133/88 H 99 01/13/20 10:55 01/13/20 10:55 01/13/20 12:01 01/13/20 12:01 01/13/20 12:01 - Laboratory Result Diagrams: 01/13/20 11:30 01/13/20 11:30 Laboratory results interpreted by me: 01/13/20 01/13/20 01/13/20 11:30 11:30 13:07 WBC 11.2 H Chloride 97 L Urine Protein 30 H Urine Ketones 80 H Urine Blood MODERATE H - Diagnostic Test Radiology reviewed: Reports reviewed Radiology results interpreted by me: 01/13/20 14:48 Chest X-Ray 01/13/20 11:02 IMPRESSION: NO ACUTE RADIOGRAPHIC FINDING IN THE CHEST. - EKG Interpretation by Me Additional EKG results interpreted by me: 01/13/20 14:48 Sinus mechanism with a rate of 78 bpm. Normal axis and intervals. No acute ST changes concerning for ischemia or infarction. Discharge - Discharge Clinical Impression: Alcohol abuse Alcohol intoxication Qualifiers: Complication of substance-induced condition: uncomplicated Qualified Code(s): F10.920 - Alcohol use, unspecified with intoxication, uncomplicated Condition: Stable Disposition: HOME, SELF-CARE Instructions: Chronic Alcoholism ([facility]) Additional Instructions: Follow-up with your physician on basis soon as possible. Consider further residential treatment at [facility] as discussed. Try to abstain from drinking alcohol. Return to the ER with worsening or new concerning symptoms of any sort.
[2020-01-13 16:12] VITALS: BP 130/78
--- NOTE | 2020-01-13 18:25 | EKG REPORT ---
SEVERITY:- NORMAL ECG - SINUS RHYTHM : Confirmed by: Kay Bauman MD 13-Jan-2020 18:25:14
== END 2020-01-13 16:13 | disposition home or self-care (01) ==
LOC: ER 10:45
DX: F10.229 Alcohol dependence with intoxication, unspecified (principal); R07.9 Chest pain, unspecified; Z88.0 Allergy status to penicillin; Z88.8 Allergy status to other drugs, medicaments and biological substances; I10 Essential (primary) hypertension
CPT/HCPCS: 93005; 99285; 96360; 36415; 80307 ×2; 82550; 83690; 83735; 84703; 85025; 80053; 81001; 71046; 93010; J7030

== ENCOUNTER 2020-01-16 22:25 | Emergency (ER) | payer OTHER ==
--- NOTE | 2020-01-16 23:47 | ER Document Report ---
ED General - General Chief Complaint: Nausea/Vomiting Stated Complaint: NAUSEA,VOMITING Time Seen by Provider: 01/16/20 23:14 Primary Care Provider: EDEN BURT [facility] [Primary Care Provider] - Follow up as needed Mode of Arrival: Ambulatory Information source: Patient Notes: 44-year-old woman presents to the emergency department history of alcohol abuse/alcoholism. States that she just completed a 30-day stay at the [facility]. She has been out for approximately 1 week and today has been drinking vodka. States that she is relapsed and would like to detox and go back into rehab. Her last drink was approximately 1 hour prior to coming into the emergency department. TRAVEL OUTSIDE OF THE [place] IN LAST 30 DAYS: No - Related Data Allergies/Adverse Reactions: butalbital [From Fioricet] Allergy (Verified 01/13/20 12:34) Penicillins Allergy (Verified 01/13/20 12:34) Home Medications: Lamictal. Propanolol Past Medical History - Social History Smoking Status: Never Smoker Chew tobacco use (# tins/day): No Frequency of alcohol use: Heavy Drug Abuse: None Family History: Reviewed & Not Pertinent, Other - Father had renal carcinoma, mom has history of CHF Patient has suicidal ideation: No Patient has homicidal ideation: No - Past Medical History Cardiac Medical History: Reports: Hx Hypertension Denies: Hx Atrial Fibrillation, Hx Congestive Heart Failure, Hx Coronary A rtery Disease, Hx DVT, Hx Heart Attack, Hx Hypercholesterolemia, Hx Pulmonary Embolism Pulmonary Medical History: Denies: Hx Asthma, Hx COPD, Hx Sleep Apnea Neurological Medical History: Denies: Hx Seizures Endocrine Medical History: Denies: Hx Diabetes Mellitus Type 1, Hx Diabetes Mellitus Type 2, Hx Hyperthyroidism, Hx Hypothyroidism Renal/ Medical History: Denies: Hx Peritoneal Dialysis GI Medical History: Reports: Hx Gastroesophageal Reflux Disease, Hx Ulcer - Pe ptic ulcer disease. Denies: Hx Cirrhosis, Hx Hepatitis Musculoskeletal Medical History: Denies Hx Arthritis Skin Medical History: Reports Hx Psoriasis Psychiatric Medical History: Reports: Hx Anxiety - Sees Dr. Ascencio and takes Lamictal, Xanax, Seroquel, and Vistaril, Hx Bipolar Disorder, Hx Depression Infectious Medical History: Denies: Hx Hepatitis Past Surgical History: Reports: Hx Abdominal Surgery - Tummy Tuck, Hx Appendectomy, Hx Breast Surgery - Augmentation, Hx Section - x1, Hx Orthopedic Surgery - Left arm x2, Hx Tubal Ligation - Immunizations Hx Diphtheria, Pertussis, Tetanus Vaccination: Yes Review of Systems - Review of Systems Notes: Constitutional: + Alcohol intoxication HENT: Negative for sore throat. Eyes: Negative for visual changes. Cardiovascular: Negative for chest pain. Respiratory: Negative for shortness of breath. Gastrointestinal: Negative for abdominal pain, vomiting or diarrhea. Genitourinary: Negative for dysuria. Musculoskeletal: Negative for back pain. Skin: Negative for rash. Neurological: Negative for headaches, weakness or numbness. 10 point ROS negative except as marked above and in HPI. Physical Exam - Vital signs Vitals: Pulse Ox 96 01/16/20 22:29 - Notes Notes: PHYSICAL EXAMINATION: Physical Exam: General: Well-nourished well-developed 84-year-old female in no acute distress HEENT: NC/AT, pupils equal round and reactive to light, MM moist,nares clear, oropharynx clear, airway patent Neck: supple, no adenopathy, no masses. Good range of motion Lungs: clear, no wheezing, no rales no rhonchi CVS: Regular rate and rhythm no murmur gallop or rub Abdomen: Soft, active, nontender, no masses, no hepatosplenomegaly Ext: No edema, clubbing or cyanosis. Neuro: Alert and responsive, moving all 4 extremities on command, cranial nerves intact, no focal findings Skin: Intact no open lesions, no rash PSYCH: Normal mood, normal affect. Course - Re-evaluation Re-evalutation: 01/17/20 01:58 Apparently there is a bed available at [facility]. Patient alcohol level needs to be less than 200. We will repeat an alcohol level at proximately 2:30 AM. 01/17/20 04:30 Patient alcohol initially 282 mg/dl at 2230., Patient had drank vodka 1 hour prior to coming to the emergency department. Repeat alcohol level at 0 230 approximately 4 hours, 250 mg/dl, the bed is being held by [facility]. A repeat alcohol nephro will be performed after 6:30 AM. - Vital Signs Vital signs: Temp Pulse Resp BP Pulse Ox 98.4 F 19 119/100 H 93 01/17/20 07:07 01/17/20 06:01 01/17/20 06:01 01/17/20 06:01 - Laboratory Result Diagrams: 01/16/20 22:39 01/16/20 22:39 Laboratory results interpreted by me: 01/16/20 01/16/20 01/17/20 22:39 22:39 00:35 MCH 33.6 H Seg Neuts % (Manual) 36 L Lymphocytes % (Manual) 53 H Monocytes % (Manual) 2 L AST 38 H Urine Blood SMALL H Urine Urobilinogen 2.0 H I have reviewed laboratory data and used this information for the treatment decisions regarding the patient. - EKG Interpretation by Me EKG shows normal: Sinus rhythm - Rate 67, normal sinus rhythm, no acute ST or T wave abnormalities noted. Interpretation, normal electrocardiogram. Discharge - Discharge Clinical Impression: Alcohol abuse, Anxiety Alcohol intoxication Qualifiers: Complication of substance-induced condition: with unspecified complication Qualified Code(s): F10.929 - Alcohol use, unspecified with intoxication, unspecified Bipolar disorder Qualifiers: Active/Remission status: currently active Current bipolar episode type: mixed Current episode severity: mild Qualified Code(s): F31.61 - Bipolar disorder, current episode mixed, mild Condition: Fair Disposition: AGAINST MEDICAL ADVICE Referrals: EDEN BURT, ID[facility] [Primary Care Provider] - Follow up as needed
[2020-01-16 23:59] LABS: HEMATOCRIT 40.8 % (36.0-47.0); HEMOGLOBIN 14.6 g/dL (12.0-15.5); MEAN CORPUSCULAR HEMOGLOBIN 33.6 pg (27.0-33.4); MEAN CORPUSCULAR HGB CONC 35.8 g/dL (32.0-36.0); MEAN CORPUSCULAR VOLUME 94 fl (80-97); RED BLOOD COUNT 4.35 10^6/uL (3.72-5.28); WHITE BLOOD COUNT 7.7 10^3/uL (4.0-10.5)
[2020-01-17 00:07] LABS: ALBUMIN 4.4 g/dL (3.5-5.0); ALCOHOL 282 mg/dL (NONE DETECTED); ALKALINE PHOSPHATASE 82 U/L (38-126); ANION GAP 15 (5-19); ASPARTATE AMINO TRANSFERASE 38 U/L (14-36); BILIRUBIN,DIRECT 0.3 mg/dL (0.0-0.4); BILIRUBIN,TOTAL 0.4 mg/dL (0.2-1.3); BLOOD UREA NITROGEN 10 mg/dL (7-20); CALCIUM 8.8 mg/dL (8.4-10.2); CARBON DIOXIDE 25 mmol/L (22-30); CHLORIDE 99 mmol/L (98-107); GLUCOSE 89 mg/dL (75-110); POTASSIUM 3.9 mmol/L (3.6-5.0); TOTAL PROTEIN 7.6 g/dL (6.3-8.2)
[2020-01-17 00:27] LABS: ABSOLUTE LYMPHOCYTES# (MANUAL) 4.6 10^3/uL (0.5-4.7); ABSOLUTE MONOCYTES # (MANUAL) 0.2 10^3/uL (0.1-1.4); BASOPHILS % (MANUAL) 2 % (0-2); EOSINOPHILS % (MANUAL) 0 % (0-6); LYMPHOCYTES % (MANUAL) 53 % (13-45); MONOCYTES % (MANUAL) 2 % (3-13); SEGMENTED NEUTROPHILS % (MAN) 36 % (42-78); TOTAL CELLS COUNTED 100
[2020-01-17 00:28] LABS: PLATELET COMMENT ADEQUATE; TOXIC GRANULATION SLIGHT
[2020-01-17 00:29] LABS: PLATELET COUNT 327 10^3/uL (150-450)
[2020-01-17 00:47] LABS: APPEARANCE,URINE SLIGHTLY-CLOUDY; BILIRUBIN,URINE NEGATIVE (NEGATIVE); COLOR,URINE YELLOW; GLUCOSE, URINE NEGATIVE (NEGATIVE); KETONES,URINE NEGATIVE (NEGATIVE); LEUKOCYTE ESTERASE,URINE NEGATIVE (NEGATIVE); NITRITE,URINE NEGATIVE (NEGATIVE); PROTEIN,URINE NEGATIVE (NEGATIVE); URINE SPECIFIC GRAVITY 1.019
[2020-01-17 01:02] LABS: URINE AMPHETAMINES SCREEN NEGATIVE; URINE BARBITURATES SCREEN NEGATIVE; URINE BENZODIAZEPINES SCREEN NEGATIVE; URINE COCAINE SCREEN NEGATIVE; URINE MARIJUANA (THC) SCREEN NEGATIVE; URINE METHADONE SCREEN NEGATIVE; URINE PHENCYCLIDINE SCREEN NEGATIVE
[2020-01-17] MEDS ORDERED: DIAZEPAM 5 MG TABLET PO ONE (02:22)
[2020-01-17 07:04] VITALS: BP 119/100
--- NOTE | 2020-01-17 07:32 | EKG REPORT ---
SEVERITY:- NORMAL ECG - SINUS RHYTHM : Confirmed by: Panda Gooden MD 17-Jan-2020 07:30:59
== END 2020-01-17 12:01 | disposition left against medical advice (07) ==
LOC: ER 22:25
DX: F10.929 Alcohol use, unspecified with intoxication, unspecified (principal); Y90.8 Blood alcohol level of 240 mg/100 ml or more; F41.9 Anxiety disorder, unspecified; F31.61 Bipolar disorder, current episode mixed, mild; R11.2 Nausea with vomiting, unspecified; I10 Essential (primary) hypertension; Z88.0 Allergy status to penicillin; Z98.51 Tubal ligation status
CPT/HCPCS: 36415; 80053; 80307; 81001; 85025; 93005; 93010; 99284

== ENCOUNTER 2020-06-20 18:41 | Emergency (ER) | payer OTHER ==
--- NOTE | 2020-06-20 19:12 | ER Document Report ---
ED Medical Screen (RME) - General Chief Complaint: High Blood Pressure Stated Complaint: LIGHTHEADED,BLOOD PRESSURE ISSUE Time Seen by Provider: 06/20/20 19:10 Primary Care Provider: EDEN BURT [facility] [Primary Care Provider] - Follow up as needed Mode of Arrival: Ambulatory Information source: Patient Notes: 45-year-old female presented to ED for trying to self detox and blood pressure started going up and she became very concerned. She states she drinks 1/5 whiskey a day and her last drink was about 5 or 6 hours ago. She states she does smoke half pack a day. She does not use any illicit drugs. She states she has had seizures from detoxing in the past. She states she supposed to go to her detox rehab next Thursday she supposed to fly out on Thursday and they will pick her up at the airport but she became very concerned today. She states she did fall a couple days ago when she was drunk she fell off the side of the bed when trying to get a phone but she remembers falling she remembers landing on the floor and get back in the bed. She does have some bruises to her arm from the last fall. Patient is alert and oriented respirations regular nonlabored at this time. Blood pressure is very elevated at this time. I have greeted and performed a rapid initial assessment of this patient. A comprehensive ED assessment and evaluation of the patient, analysis of test results and completion of medical decision making process will be conducted by an additional ED providers. TRAVEL OUTSIDE OF THE [place] IN LAST 30 DAYS: No - Related Data Allergies/Adverse Reactions: butalbital [From Fioricet] Allergy (Verified 06/20/20 19:03) Penicillins Allergy (Verified 06/20/20 19:03) Past Medical History - Social History Family history: CAD - Past Medical History Cardiac Medical History: Reports: Hx Hypertension Denies: Hx Atrial Fibrillation, Hx Congestive Heart Failure, Hx Coronary Artery Disease, Hx DVT, Hx Heart Attack, Hx Hypercholesterolemia, Hx Pulmonary Embolism Pulmonary Medical History: Denies: Hx Asthma, Hx COPD, Hx Sleep Apnea Neurological Medical History: Denies: Hx Seizures Endocrine Medical History: Denies: Hx Diabetes Mellitus Type 1, Hx Diabetes Mellitus Type 2, Hx Hyperthyroidism, Hx Hypothyroidism Renal/ Medical History: Denies: Hx Peritoneal Dialysis GI Medical History: Reports: Hx Gastroesophageal Reflux Disease, Hx Ulcer - Peptic ulcer disease. Denies: Hx Cirrhosis, Hx Hepatitis Musculoskeltal Medical History: Denies Hx Arthritis Skin Medical History: Reports Hx Psoriasis Psychiatric Medical History: Reports: Hx Anxiety - Sees Dr. Ascencio and takes Lamictal, Xanax, Seroquel, and Vistaril, Hx Bipolar Disorder, Hx Depression Infectious Medical History: Denies: Hx Hepatitis Past Surgical History: Reports: Hx Abdominal Surgery - Tummy Tuck, Hx Appendectomy, Hx Breast Surgery - Augmentation, Hx Section - x1, Hx Orthopedic Surgery - Left arm x2, Hx Tubal Ligation - Immunizations Hx Diphtheria, Pertussis, Tetanus Vaccination: Yes Physical Exam - Vital signs Vitals: Temp Pulse Resp BP Pulse Ox 98.7 F 72 16 163/103 H 100 06/20/20 18:46 06/20/20 18:46 06/20/20 18:46 06/20/20 18:46 06/20/20 18:46 Course - Vital Signs Vital signs: Temp Pulse Resp BP Pulse Ox 98.7 F 72 16 163/103 H 100 06/20/20 18:46 06/20/20 18:46 06/20/20 18:46 06/20/20 18:46 06/20/20 18:46 Doctor's Discharge - Discharge Referrals: EDEN BURT, MERY [Primary Care Provider] - Follow up as needed
[2020-06-20] MEDS ORDERED: ONDANSETRON HCL INJ/PF 4 MG/2 ML SDV IV ONE (20:20)
[2020-06-20] MEDS ORDERED: KETOROLAC TROMETHAMINE INJ/PF 30 MG/1 ML SDV IV ONE (20:20)
[2020-06-20] MEDS ORDERED: RINGERS SOLUTION,LACTATED 1,000 ML IV ONE (20:20)
[2020-06-20 20:27] LABS: ABSOLUTE BASOPHILS # (AUTO) 0.2 10^3/uL (0.0-0.2); ABSOLUTE LYMPHOCYTES (AUTO) 3.1 10^3/uL (0.5-4.7); ABSOLUTE NEUT (AUTO) 7.6 10^3/uL (1.7-8.2); BASOPHILS % (AUTO) 1.5 % (0-2); EOSINOPHILS % (AUTO) 0.2 % (0-6); HEMATOCRIT 39.8 % (36.0-47.0); HEMOGLOBIN 14.2 g/dL (12.0-15.5); LYMPHOCYTES % (AUTO) 26.1 % (13-45); MEAN CORPUSCULAR HEMOGLOBIN 34.4 pg (27.0-33.4); MEAN CORPUSCULAR HGB CONC 35.7 g/dL (32.0-36.0); MEAN CORPUSCULAR VOLUME 96 fl (80-97); MONOCYTES % (AUTO) 8.1 % (3-13); PLATELET COUNT 465 10^3/uL (150-450); RED BLOOD COUNT 4.13 10^6/uL (3.72-5.28); RED CELL DISTRIBUTION WIDTH 15.4 % (11.5-14.0); SEGMENTED NEUTROPHILS % (AUTO) 64.1 % (42-78); TOTAL CELLS COUNTED % (AUTO) 100 %; WHITE BLOOD COUNT 11.8 10^3/uL (4.0-10.5)
--- NOTE | 2020-06-20 20:29 | ER Document Report ---
ED General - General Chief Complaint: High Blood Pressure Stated Complaint: LIGHTHEADED,BLOOD PRESSURE ISSUE Time Seen by Provider: 06/20/20 19:10 Primary Care Provider: EDEN BURT [facility] [NO LOCAL MD] - Follow up as needed Mode of Arrival: Ambulatory TRAVEL OUTSIDE OF THE [place] IN LAST 30 DAYS: No - HPI Notes: Patient is a 45-year-old female who presents to the emergency department for evaluation. She states she is currently trying to detox from alcohol. She has a facility that she plans to fly out to next week. She states that she has been on a binge of whiskey drinking. She states she has been drinking approximately 1/5 of whiskey a day for the last 13 days. She states that she "never stayed sober for long." She states that she has had days without alcohol in the last several months, has not had any seizure activity. She states that she has had withdrawal seizures in the past. She states he became concerned because her blood pressure cuff read "160 something over 140 something" so she presents to the ED for further evaluation. She is had nausea with one episode of nonbloody, nonbilious emesis. She has a headache. She denies any tremors. No visual, auditory, or tactile hallucinations reported. She admits to taking a Percocet today to try and offset her withdrawal symptoms, it did not help. - Related Data Allergies/Adverse Reactions: butalbital [From Fioricet] Allergy (Verified 06/20/20 19:03) Penicillins Allergy (Verified 06/20/20 19:03) Home Medications: propranolol, klonopin, omeprazole Past Medical History - General Information source: Patient - Social History Smoking Status: Current Some Day Smoker Chew tobacco use (# tins/day): No Frequency of alcohol use: None Drug Abuse: None Family History: Reviewed & Not Pertinent, Other - Father had renal carcinoma, mom has history of CHF Patient has homicidal ideation: No - Past Medical History Cardiac Medical History: Reports: Hx Hypertension Denies: Hx Atrial Fibrillation, Hx Congestive Heart Failure, Hx Coronary Artery Disease, Hx DVT, Hx Heart Attack, Hx Hypercholesterolemia, Hx Pulmonary Embolism Pulmonary Medical History: Denies: Hx Asthma, Hx COPD, Hx Sleep Apnea Neurological Medical History: Denies: Hx Seizures Endocrine Medical History: Denies: Hx Diabetes Mellitus Type 1, Hx Diabetes Mellitus Type 2, Hx Hyperthyroidism, Hx Hypothyroidism Renal/ Medical History: Denies: Hx Peritoneal Dialysis GI Medical History: Reports: Hx Gastroesophageal Reflux Disease, Hx Ulcer - P eptic ulcer disease. Denies: Hx Cirrhosis, Hx Hepatitis Musculoskeletal Medical History: Denies Hx Arthritis Skin Medical History: Reports Hx Psoriasis Psychiatric Medical History: Reports: Hx Anxiety - Sees Dr. Ascencio and takes Lamictal, Xanax, Seroquel, and Vistaril, Hx Bipolar Disorder, Hx Depression Infectious Medical History: Denies: Hx Hepatitis Past Surgical History: Reports: Hx Abdominal Surgery - Tummy Tuck, Hx Appendectomy, Hx Breast Surgery - Augmentation, Hx Section - x1, Hx Orthopedic Surgery - Left arm x2, Hx Tubal Ligation - Immunizations Hx Diphtheria, Pertussis, Tetanus Vaccination: Yes Review of Systems - Review of Systems Constitutional: No symptoms reported EENT: No symptoms reported Cardiovascular: See HPI Respiratory: No symptoms reported Gastrointestinal: See HPI Genitourinary: No symptoms reported Musculoskeletal: No symptoms reported Skin: No symptoms reported Neurological/Psychological: No symptoms reported Physical Exam - Vital signs Vitals: Temp Pulse Resp BP Pulse Ox 98.7 F 72 16 163/103 H 100 06/20/20 18:46 06/20/20 18:46 06/20/20 18:46 06/20/20 18:46 06/20/20 18:46 - Notes Notes: Vital signs reviewed, please refer to chart. Head is normocephalic, atraumatic. Pupils equal round, reactive to light. Neck is supple without meningismus. Heart is regular rate and rhythm. Lungs are clear to auscultation bilaterally. Abdomen is soft, nontender, normoactive bowel sounds throughout. Extremities without cyanosis, clubbing. Posterior calves are nontender. Peripheral pulses are equal. Skin is warm and dry. Patient is awake, alert, neurological exam is nonfocal. Course - Re-evaluation Re-evalutation: 06/20/20 20:29 Patient presents to the emergency department for evaluation. She was evaluated with multiple labs. Her vitals are largely unremarkable at this time, although her blood pressure is mildly elevated. She is placed on a quality assurance monitor final, seizure precautions were initiated. I did treat her with Zofran, Toradol, IV fluids. I do not see any indication for benzodiazepines at this time. She is currently stable, we will continue to monitor. 06/20/20 22:20 Patient continues to feel slightly nauseated, was treated with Phenergan. Otherwise, she is not tachycardic. She is not significantly hypertensive. Her blood alcohol, given that it was measured in the 16 range, is now entirely nega tive, and she not having overt withdrawal symptoms. We will send her home with Zofran. She already has plans for alcohol detox. She is to return to the emergency department worsening or new concerning symptoms of any sort. - Vital Signs Vital signs: Temp Pulse Resp BP Pulse Ox 98.7 F 72 16 163/103 H 100 06/20/20 18:46 06/20/20 18:46 06/20/20 18:46 06/20/20 18:46 06/20/20 18:46 - Laboratory Result Diagrams: 06/20/20 20:07 06/20/20 20:07 Laboratory results interpreted by me: 06/20/20 06/20/20 06/20/20 20:07 20:07 20:07 WBC 11.8 H MCH 34.4 H RDW 15.4 H Plt Count 465 H BUN 4 L Glucose 124 H AST 52 H ALT 70 H Urine Protein >=500 H Urine Bilirubin MODERATE H Ur Leukocyte Esterase TRACE H Salicylates < 1.0 L Acetaminophen < 10 L - EKG Interpretation by Me Additional EKG results interpreted by me: 06/20/20 20:29 Sinus mechanism with a rate of 65 bpm. Normal axis and intervals. No acute ST changes concerning for ischemia or infarction. Discharge - Discharge Clinical Impression: Alcohol abuse Condition: Stable Disposition: HOME, SELF-CARE Instructions: Alcohol Withdrawl ([facility]), Chronic Alcoholism ([facility]) Additional Instructions: Stay hydrated with small, frequent sips of fluids. Zofran as needed for nausea. Please follow-up with rehab/alcohol detox as discussed. Return to the emergency department if you develop worsening or new concerning symptoms of any sort. Referrals: EDEN BURT, MERY [NO LOCAL MD] - Follow up as needed
[2020-06-20 20:31] LABS: APPEARANCE,URINE SLIGHTLY-CLOUDY; BILIRUBIN,URINE MODERATE (NEGATIVE); COLOR,URINE AMBER; GLUCOSE, URINE NEGATIVE (NEGATIVE); KETONES,URINE NEGATIVE (NEGATIVE); LEUKOCYTE ESTERASE,URINE TRACE (NEGATIVE); NITRITE,URINE NEGATIVE (NEGATIVE); PROTEIN,URINE >=500 mg/dL (NEGATIVE); URINE SPECIFIC GRAVITY 1.026; UROBILINOGEN,URINE NEGATIVE mg/dL (<2.0)
[2020-06-20 20:38] LABS: ALCOHOL 16 mg/dL (NONE DETECTED); ALKALINE PHOSPHATASE 83 U/L (38-126); ANION GAP 16 (5-19); ASPARTATE AMINO TRANSFERASE 52 U/L (14-36); BILIRUBIN,DIRECT 0.3 mg/dL (0.0-0.4); BLOOD UREA NITROGEN 4 mg/dL (7-20); CARBON DIOXIDE 28 mmol/L (22-30); CHLORIDE 98 mmol/L (98-107); GLUCOSE 124 mg/dL (75-110); POTASSIUM 4.1 mmol/L (3.6-5.0); TOTAL PROTEIN 8.2 g/dL (6.3-8.2)
[2020-06-20 20:39] LABS: ACETAMINOPHEN < 10 ug/mL (10-30); SALICYLATE < 1.0 mg/dL (2.0-20.0)
[2020-06-20 20:44] LABS: URINE AMPHETAMINES SCREEN NEGATIVE; URINE BARBITURATES SCREEN NEGATIVE; URINE BENZODIAZEPINES SCREEN UNCONFIRMED POSITIVE; URINE COCAINE SCREEN NEGATIVE; URINE MARIJUANA (THC) SCREEN NEGATIVE; URINE METHADONE SCREEN NEGATIVE; URINE PHENCYCLIDINE SCREEN NEGATIVE
--- NOTE | 2020-06-20 21:55 | EKG REPORT ---
SEVERITY:- NORMAL ECG - SINUS RHYTHM : Confirmed by: Kay Bauman MD 20-Jun-2020 21:54:23
[2020-06-20] MEDS ORDERED: PROMETHAZINE HCL INJ 25 MG/1 ML VIAL IV ONE (22:06)
[2020-06-20] MEDS ORDERED: ONDANSETRON ODT 4 MG TAB (6 TAB/ER DISP) PO PRN (22:21)
[2020-06-20 23:08] VITALS: BP 135/96
== END 2020-06-20 23:08 | disposition home or self-care (01) ==
LOC: ER 18:41
DX: F10.10 Alcohol abuse, uncomplicated (principal); I10 Essential (primary) hypertension; R42 Dizziness and giddiness; Z88.0 Allergy status to penicillin; Z88.8 Allergy status to other drugs, medicaments and biological substances; Z79.899 Other long term (current) drug therapy; F17.200 Nicotine dependence, unspecified, uncomplicated
CPT/HCPCS: 93005; 99284; 96361; 96374; 96375; 36415; 80307 ×4; 85025; 80053; 81001; 93010; J1885; J2550; J2405; J7120